=== PATIENT | male | born 1975 | race Caucasian/White ===

== ENCOUNTER 2018-08-15 17:47 | Emergency (ER) | payer MEDICAID, OTHER ==
[~2018-08-15] VITALS: Ht 188 cm; Wt 105.0 kg
[2018-08-15] MEDS ORDERED: DULO60CA7 PO (18:06)
[2018-08-15] MEDS ORDERED: OLAN20TA3 PO (18:06)
[2018-08-15 19:19] LABS: ALBUMIN 3.9 g/dL (3.4-5.0); BASOPHILS # (AUTO) 0.04 x10^3/uL (0-0.1); BASOPHILS % (AUTO) 1 % (0-1); CALCIUM 9.4 mg/dL (8.5-10.1); CREATININE 1.16 mg/dL (0.7-1.3); EOSINOPHILS # (AUTO) 0.13 x10^3/uL (0-0.4); EOSINOPHILS % (AUTO) 2 % (1-7); LYMPHOCYTES % (AUTO) 27 % (22-44); MD NO; MEAN CORPUSCULAR HEMOGLOBIN 29.7 pg (27.5-34.5); MEAN CORPUSCULAR HGB CONC 33.5 g/dL (33.2-36.2); MEAN CORPUSCULAR VOLUME 88.5 fL (81-97); MEAN PLATELET VOLUME 8.8 fL (7.4-10.4); MONOCYTES % (AUTO) 20 % (2-9); NEUTROPHILS # (AUTO) 2.77 x10^3/uL (1.8-6.8); NEUTROPHILS % (AUTO) 50 % (42-75); PLATELET COUNT 261 x10^3/uL (130-400); RED BLOOD COUNT 5.46 x10^6/uL (4.38-5.82); RED CELL DISTRIBUTION WIDTH 14.1 % (9.4-14.8)
[2018-08-15 19:23] LABS: TROPONIN I < 0.015 ng/mL (0.000-0.045)
[2018-08-15 19:28] LABS: ANION GAP 6 mmol/L (5-15); CHLORIDE 106 mmol/L (98-107)
[2018-08-15 19:51] VITALS: BP 124/85
[2018-08-15] MEDS ORDERED: KETOROLAC 30 MG/1 ML IM ONE (20:00)
== END 2018-08-15 19:53 | disposition home or self-care (01) ==
LOC: ED 18:24
DX: Z02.89 Encounter for other administrative examinations (principal); R42 Dizziness and giddiness; F17.200 Nicotine dependence, unspecified, uncomplicated
CPT/HCPCS: 36415; 71045; 80048; 82040; 84484; 85025; 93005; 99284

== ENCOUNTER 2018-08-27 13:16 | Emergency (ER) | payer OTHER ==
[~2018-08-27] VITALS: Ht 188 cm; Wt 108.0 kg
[~2018-08-27 13:16] MED LIST: DULO60CA7 PO; OLAN20TA3 PO
--- NOTE | 2018-08-27 13:27 | NUR ---
PT IN ROOM. IN GOWN WITH OFFICER IN ROOM. AWAITING MD DAVIS.
[2018-08-27] MEDS ORDERED: KETOROLAC 30 MG/1 ML IM/IV ONE (14:00)
[2018-08-27] MEDS ORDERED: KETOROLAC 30 MG/1 ML ONE (14:03)
[2018-08-27 14:37] VITALS: BP 139/91
[2018-08-27] MEDS ORDERED: SODIUM CHLORIDE FLUSH 10ML SYR IVF ONE (15:00)
[2018-08-27 15:25] LABS: BASOPHILS # (AUTO) 0.06 x10^3/uL (0-0.1); BASOPHILS % (AUTO) 1 % (0-1); EOSINOPHILS # (AUTO) 0.18 x10^3/uL (0-0.4); EOSINOPHILS % (AUTO) 2 % (1-7); LYMPHOCYTES # (AUTO) 1.92 x10^3/uL (1-3.4); LYMPHOCYTES % (AUTO) 24 % (22-44); MD NO; MEAN CORPUSCULAR HEMOGLOBIN 29.3 pg (27.5-34.5); MEAN CORPUSCULAR HGB CONC 33.2 g/dL (33.2-36.2); MEAN CORPUSCULAR VOLUME 88.3 fL (81-97); MEAN PLATELET VOLUME 8.9 fL (7.4-10.4); MONOCYTES # (AUTO) 0.83 x10^3/uL (0.2-0.8); MONOCYTES % (AUTO) 10 % (2-9); NEUTROPHILS # (AUTO) 5.16 x10^3/uL (1.8-6.8); NEUTROPHILS % (AUTO) 63 % (42-75); PLATELET COUNT 282 x10^3/uL (130-400); RED BLOOD COUNT 5.42 x10^6/uL (4.38-5.82); RED CELL DISTRIBUTION WIDTH 13.9 % (9.4-14.8)
[2018-08-27 15:37] LABS: CULTURE INDICATED? NO; MICROSCOPIC NOT IND
[2018-08-27 15:38] LABS: ALBUMIN 3.9 g/dL (3.4-5.0); ANION GAP 0 mmol/L (5-15); CALCIUM 9.2 mg/dL (8.5-10.1); CHLORIDE 109 mmol/L (98-107)
[2018-08-27 15:41] LABS: ALANINE AMINOTRANSFERASE 48 U/L (12-78); ALKALINE PHOSPHATASE 108 U/L (45-117); BILIRUBIN,TOTAL 0.3 mg/dL (0.2-1.0); CREATININE 1.02 mg/dL (0.7-1.3); TOTAL PROTEIN 7.1 g/dL (6.4-8.2)
[2018-08-27] MEDS ORDERED: OMNIPAQUE 350 MG/ML, 100ML BOTTLE ONE (16:10)
== END 2018-08-27 16:50 | disposition home or self-care (01) ==
LOC: ED 13:54
DX: N20.2 Calculus of kidney with calculus of ureter (principal); F17.200 Nicotine dependence, unspecified, uncomplicated
CPT/HCPCS: 36415; 74177; 76870; 80053; 81003; 83690; 85025; 93975; 96372; 99284; J1885; Q9967

== ENCOUNTER 2019-03-09 10:14 | Emergency (ER) | payer MEDICAID, OTHER ==
[~2019-03-09] VITALS: Ht 188 cm; Wt 100.0 kg
[2019-03-09] MEDS ORDERED: HYDROmorphone 2 MG/ML, 1ML IVPush PRN (10:30)
[2019-03-09] MEDS ORDERED: ONDANSETRON 2MG/ML, 2ML IVPush ONE (10:30)
[2019-03-09] MEDS ORDERED: SODIUM CHLORIDE FLUSH 10ML SYR IVF ONE (10:30)
[2019-03-09 10:49] LABS: BASOPHILS # (AUTO) 0.05 x10^3/uL (0-0.1); BASOPHILS % (AUTO) 1 % (0-1); EOSINOPHILS # (AUTO) 0.08 x10^3/uL (0-0.4); EOSINOPHILS % (AUTO) 1 % (1-7); LYMPHOCYTES # (AUTO) 1.84 x10^3/uL (1-3.4); LYMPHOCYTES % (AUTO) 29 % (22-44); MD NO; MEAN CORPUSCULAR HEMOGLOBIN 29.4 pg (27.5-34.5); MEAN CORPUSCULAR HGB CONC 32.2 g/dL (33.2-36.2); MEAN CORPUSCULAR VOLUME 91.2 fL (81-97); MEAN PLATELET VOLUME 8.3 fL (7.4-10.4); MONOCYTES # (AUTO) 0.62 x10^3/uL (0.2-0.8); MONOCYTES % (AUTO) 10 % (2-9); NEUTROPHILS # (AUTO) 3.78 x10^3/uL (1.8-6.8); NEUTROPHILS % (AUTO) 59 % (42-75); PLATELET COUNT 246 x10^3/uL (130-400); RED BLOOD COUNT 5.16 x10^6/uL (4.38-5.82); RED CELL DISTRIBUTION WIDTH 13.6 % (9.4-14.8)
[2019-03-09 10:52] LABS: ALANINE AMINOTRANSFERASE 27 U/L (12-78); ALBUMIN 3.8 g/dL (3.4-5.0); ANION GAP 14 mmol/L (5-15); CHLORIDE 113 mmol/L (98-107); CREATININE 0.97 mg/dL (0.7-1.3)
[2019-03-09] MEDS ORDERED: ONDANSETRON 2MG/ML, 2ML ONE (10:54)
[2019-03-09 10:55] LABS: ALKALINE PHOSPHATASE 94 U/L (45-117); BILIRUBIN,TOTAL 0.3 mg/dL (0.2-1.0)
[2019-03-09] MEDS ORDERED: HYDROmorphone 2 MG/ML, 1ML ONE ×2 (10:55→11:44)
[2019-03-09 10:59] LABS: MICROSCOPIC AUTO
[2019-03-09 11:05] LABS: CALCIUM 9.1 mg/dL (8.5-10.1)
--- NOTE | 2019-03-09 11:15 | NUR ---
MEDICATED FOR NAUSEA AND RUQ PAIN. ULTRASOUND AT BEDSIDE
[2019-03-09 11:20] LABS: CULTURE INDICATED? YES
--- NOTE | 2019-03-09 11:50 | NUR ---
PT REMEDICATED FOR PAIN TRIGGERED BY ULTRASOUND EXAM
[2019-03-09 12:45] VITALS: BP 132/64
== END 2019-03-09 12:47 | disposition home or self-care (01) ==
LOC: ED 12:14
DX: K29.00 Acute gastritis without bleeding (principal); F17.200 Nicotine dependence, unspecified, uncomplicated
CPT/HCPCS: 36415; 76700; 80053; 81001; 83690; 85025; 87086; 96374; 99284; J1170

== ENCOUNTER 2019-03-12 20:28 | Emergency (ER) | payer MEDICAID ==
[~2019-03-12] VITALS: Ht 188 cm; Wt 100.2 kg
[2019-03-12 20:30] VITALS: BP 133/81
--- NOTE | 2019-03-12 20:59 | NUR ---
Pt brought to room 3, c/o worsening RUQ pain today with emesis x 2 around noon, states recent dx and treatment for "gall bladder issues", discharged from [facility] 1 week ago, appt w/ Dr. Matias tomorrow for consult but states pain "was too bad to make it". Pt is alert, calm, cooperative, respirations normal, not currently guarding, tendr to palpation, vitals stable. Labs drawn. waiting for orders.
[2019-03-12 21:05] LABS: BASOPHILS # (AUTO) 0.05 x10^3/uL (0-0.1); BASOPHILS % (AUTO) 1 % (0-1); EOSINOPHILS # (AUTO) 0.11 x10^3/uL (0-0.4); EOSINOPHILS % (AUTO) 1 % (1-7); LYMPHOCYTES % (AUTO) 30 % (22-44); MD NO; MEAN CORPUSCULAR HEMOGLOBIN 29.8 pg (27.5-34.5); MEAN CORPUSCULAR HGB CONC 32.9 g/dL (33.2-36.2); MEAN CORPUSCULAR VOLUME 90.8 fL (81-97); MEAN PLATELET VOLUME 8.2 fL (7.4-10.4); MONOCYTES # (AUTO) 0.83 x10^3/uL (0.2-0.8); MONOCYTES % (AUTO) 10 % (2-9); NEUTROPHILS # (AUTO) 4.79 x10^3/uL (1.8-6.8); NEUTROPHILS % (AUTO) 58 % (42-75); PLATELET COUNT 252 x10^3/uL (130-400); RED BLOOD COUNT 5.15 x10^6/uL (4.38-5.82); RED CELL DISTRIBUTION WIDTH 13.6 % (9.4-14.8)
[2019-03-12 21:14] LABS: ALANINE AMINOTRANSFERASE 24 U/L (12-78); ALBUMIN 3.8 g/dL (3.4-5.0); ANION GAP 6 mmol/L (5-15); CALCIUM 9.5 mg/dL (8.5-10.1); CHLORIDE 110 mmol/L (98-107)
[2019-03-12 21:16] LABS: ALKALINE PHOSPHATASE 92 U/L (45-117); BILIRUBIN,TOTAL 0.2 mg/dL (0.2-1.0); TOTAL PROTEIN 7.2 g/dL (6.4-8.2)
--- NOTE | 2019-03-12 22:03 | NUR ---
Labs and US reviewed, pt updated, vitals stable. Pt discharged to home w/ new script, instructed to f/u w/ provider as planned, verbalizes understanding. Exitcare reviewed. Ambulates w/ steady gait to front lobby.
== END 2019-03-12 22:11 | disposition home or self-care (01) ==
LOC: ED 22:05
DX: R10.11 Right upper quadrant pain (principal); R11.2 Nausea with vomiting, unspecified; F17.200 Nicotine dependence, unspecified, uncomplicated
CPT/HCPCS: 36415; 76700; 80053; 83690; 85025; 93005; 99284

== ENCOUNTER 2019-03-21 00:49 | Emergency (ER) | payer MEDICAID ==
[~2019-03-21] VITALS: Ht 188 cm; Wt 100.0 kg
--- NOTE | 2019-03-21 01:02 | NUR ---
EKG DONE ON ARRIVAL.
--- NOTE | 2019-03-21 01:08 | NUR ---
BIB EMS from work, c/o substernal chest pain radiates to left chest/ axial x 3 hours w/ nausea/ emesis. Pt denies SOB, skin is dry, reports recent discharge from [facility] 2 days ago for acute liz, states "it kind of feels the same".
[2019-03-21] MEDS ORDERED: MORPHINE SULFATE 4 MG/ML, 1ML ONE (01:19)
--- NOTE | 2019-03-21 01:24 | NUR ---
PT MEDICATED FOR PAIN, TOLERATES iv MEDICATION WELL, VITALS REMAIN STABLE.
[2019-03-21 01:30] LABS: BASOPHILS # (AUTO) 0.06 x10^3/uL (0-0.1); BASOPHILS % (AUTO) 1 % (0-1); EOSINOPHILS # (AUTO) 0.12 x10^3/uL (0-0.4); EOSINOPHILS % (AUTO) 1 % (1-7); LYMPHOCYTES # (AUTO) 2.38 x10^3/uL (1-3.4); LYMPHOCYTES % (AUTO) 25 % (22-44); MD NO; MEAN CORPUSCULAR HEMOGLOBIN 29.9 pg (27.5-34.5); MEAN CORPUSCULAR VOLUME 90.6 fL (81-97); MEAN PLATELET VOLUME 8.3 fL (7.4-10.4); MONOCYTES # (AUTO) 0.98 x10^3/uL (0.2-0.8); MONOCYTES % (AUTO) 10 % (2-9); NEUTROPHILS # (AUTO) 6.01 x10^3/uL (1.8-6.8); NEUTROPHILS % (AUTO) 63 % (42-75); PLATELET COUNT 294 x10^3/uL (130-400); RED BLOOD COUNT 5.16 x10^6/uL (4.38-5.82)
[2019-03-21] MEDS ORDERED: MORPHINE SULFATE 4 MG/ML, 1ML IVPush ONE (01:30)
[2019-03-21] MEDS ORDERED: SODIUM CHLORIDE FLUSH 10ML SYR IVF ONE (01:30)
[2019-03-21] MEDS ORDERED: ONDANSETRON 2MG/ML, 2ML IVPush ONE (01:30)
[2019-03-21 01:40] LABS: ALBUMIN 3.6 g/dL (3.4-5.0); ANION GAP 7 mmol/L (5-15); CHLORIDE 111 mmol/L (98-107); CREATININE 1.16 mg/dL (0.7-1.3)
[2019-03-21 01:43] LABS: TROPONIN I < 0.015 ng/mL (0.000-0.045)
[2019-03-21] MEDS ORDERED: HYDROcodone/APAP 5/325 TABLET ONE (02:14)
[2019-03-21 02:19] VITALS: BP 120/88
--- NOTE | 2019-03-21 02:20 | NUR ---
Pt medicated for pain per MD orders, states improvement w/ morphine, "it feels like cramping". Vitals stable, repeat trop ordered. will cont to monitor.
[2019-03-21] MEDS ORDERED: HYDROcodone/APAP 5/325 TABLET PO ONE (02:30)
--- NOTE | 2019-03-21 03:40 | NUR ---
Pt resting on gurney w/ eyes closed, respirations are even and unlabored, no s/sx of distress noted, vitals stable, remains NSR on monitor, waiting on repeat labwork.
--- NOTE | 2019-03-21 04:45 | NUR ---
Labs collected, waiting for results. vitals remain stable.
[2019-03-21 05:09] LABS: TROPONIN I < 0.015 ng/mL (0.000-0.045)
[2019-03-21] MEDS ORDERED: ONDANSETRON 2MG/ML, 2ML ONE (05:09)
--- NOTE | 2019-03-21 05:12 | NUR ---
Pt medicated for c/o nausea, vitals stable, waiting on lab results.
[2019-03-22] MEDS ORDERED: LISINOPRIL (23:51)
[2019-03-28] MEDS ORDERED: BENZ2AMP4 PO (13:26)
[2019-03-28] MEDS ORDERED: QUET300T5 PO (13:26)
[2019-03-28] MEDS ORDERED: DULO60CA7 PO (13:26)
[2019-03-28] MEDS ORDERED: GABA300C10 PO (13:26)
[2019-05-02] MEDS ORDERED: PROP10TA16 PO (22:59)
[2019-05-02] MEDS ORDERED: HALO5TAB5 PO (22:59)
[2019-05-02] MEDS ORDERED: MIRT15TA3 PO (22:59)
[2019-05-28] MEDS ORDERED: ZIPR40CA2 PO (20:25)
[2019-05-28] MEDS ORDERED: CLON2TAB PO (20:25)
[2019-05-28] MEDS ORDERED: OMEP-110 PO (20:25)
[2019-05-28] MEDS ORDERED: CARB200T PO (20:25)
[2019-05-28] MEDS ORDERED: ACET650S21 PO (20:25)
[2019-05-28] MEDS ORDERED: ZOLP10TA PO (20:25)
== END 2019-03-21 05:51 | disposition home or self-care (01) ==
LOC: ED 01:38
DX: R07.89 Other chest pain (principal); R11.10 Vomiting, unspecified; F17.200 Nicotine dependence, unspecified, uncomplicated
CPT/HCPCS: 36415; 71045; 80048; 82040; 84484; 85025; 85379; 93005; 96374; 96375; 99284; J2270; J2405

== ENCOUNTER 2019-03-22 22:48 | Emergency (ER) | payer MEDICAID ==
[~2019-03-22] VITALS: Ht 188 cm; Wt 99.0 kg
[2019-03-22] MEDS ORDERED: OXYcodone/APAP 5/325MG TABLET ONE (23:40)
[2019-03-22] MEDS ORDERED: LISINOPRIL (23:51)
[2019-03-22 23:53] LABS: CULTURE INDICATED? YES; MICROSCOPIC INDICATED
[2019-03-23] MEDS ORDERED: ONDANSETRON ODT 8 MG PO ONE
[2019-03-23] MEDS ORDERED: ONDANSETRON ODT 4 MG ONE (00:01)
--- NOTE | 2019-03-23 00:23 | NUR ---
PT STATED THAT PAIN MEDICATION HASNT HELPED WITH PAIN. ER MD INFORMED.
[2019-03-23] MEDS ORDERED: OXYcodone/APAP 5/325MG TABLET PO ONE ×2 (00:30)
[2019-03-23 00:37] LABS: ANION GAP 5 mmol/L (5-15); CALCIUM 8.7 mg/dL (8.5-10.1); CHLORIDE 112 mmol/L (98-107); CREATININE 0.95 mg/dL (0.7-1.3)
[2019-03-23] MEDS ORDERED: OXYcodone/APAP 5/325MG TABLET ONE (00:39)
--- NOTE | 2019-03-23 00:40 | NUR ---
PT MEDICATED AND CT AT BEDSIDE TO TRANSPORT.
[2019-03-23 02:16] VITALS: BP 111/65
--- NOTE | 2019-03-23 02:17 | NUR ---
Patient/Caregiver given discharge instructions and they have confirmed that they understand the instructions. Patient ambulatory with steady gait.
[2019-03-28] MEDS ORDERED: QUET300T5 PO (13:26)
[2019-03-28] MEDS ORDERED: DULO60CA7 PO (13:26)
[2019-03-28] MEDS ORDERED: GABA300C10 PO (13:26)
[2019-03-28] MEDS ORDERED: BENZ2AMP4 PO (13:26)
[2019-05-02] MEDS ORDERED: HALO5TAB5 PO (22:59)
[2019-05-02] MEDS ORDERED: MIRT15TA3 PO (22:59)
[2019-05-02] MEDS ORDERED: PROP10TA16 PO (22:59)
[2019-05-28] MEDS ORDERED: ZOLP10TA PO (20:25)
[2019-05-28] MEDS ORDERED: OMEP-110 PO (20:25)
[2019-05-28] MEDS ORDERED: CLON2TAB PO (20:25)
[2019-05-28] MEDS ORDERED: CARB200T PO (20:25)
[2019-05-28] MEDS ORDERED: ACET650S21 PO (20:25)
[2019-05-28] MEDS ORDERED: ZIPR40CA2 PO (20:25)
== END 2019-03-23 02:18 | disposition home or self-care (01) ==
LOC: ED 23:41
DX: N50.811 Right testicular pain (principal); R31.0 Gross hematuria; F17.200 Nicotine dependence, unspecified, uncomplicated; I10 Essential (primary) hypertension
CPT/HCPCS: 36415; 74176; 76870; 80048; 81001; 87086; 99284; Q0162

== ENCOUNTER 2019-03-28 12:50 | Emergency (ER) | payer MEDICAID ==
[~2019-03-28] VITALS: Ht 188 cm; Wt 97.6 kg
[2019-03-28 20:52] VITALS: BP 109/75
== END 2019-03-28 20:56 ==
LOC: ED 13:58
DX: R45.851 Suicidal ideations (principal); F32.9 Major depressive disorder, single episode, unspecified; F25.9 Schizoaffective disorder, unspecified; F17.200 Nicotine dependence, unspecified, uncomplicated
CPT/HCPCS: 36415; 80048; 80307; 82040; 85025; 99285

== ENCOUNTER 2019-04-09 23:42 | Emergency (ER) | payer MEDICAID ==
[~2019-04-09] VITALS: Ht 188 cm; Wt 99.5 kg
[2019-04-10 09:01] VITALS: BP 126/85
== END 2019-04-10 13:28 ==
LOC: ED 23:51
DX: F41.1 Generalized anxiety disorder (principal); F16.151 Hallucinogen abuse with hallucinogen-induced psychotic disorder with hallucinations; Z72.9 Problem related to lifestyle, unspecified
CPT/HCPCS: 36415; 80053; 80307; 85025; 99285

== ENCOUNTER 2019-08-09 19:09 | Emergency (ER) | payer MEDICAID ==
[~2019-08-09] VITALS: Ht 188 cm; Wt 106.0 kg
[~2019-08-09 19:09] MED LIST changes: +ACET650S21 PO; +BENZ2AMP4 PO; +CARB200T PO; +CLON2TAB PO; +GABA300C10 PO; +HALO5TAB5 PO; +LISINOPRIL; +MIRT15TA3 PO; +OMEP-110 PO; +PROP10TA16 PO; +QUET300T5 PO; +ZIPR40CA2 PO; +ZOLP10TA PO
--- NOTE | 2019-08-09 20:43 | NUR ---
BIB [facility]. PT WOKE UP FROM [facility] AT 1800 WITH 9/10 RUQ ABD PAIN WITH 1 EPISODE OF EMESIS. PT HAD BREAKFAST THIS AM, BUT NOTHING SINCE. CANDY SUPERVISOR [facility]: 18G RAC, 250 FENT, 4 ZOFRAN. CONNECTED TO MONITORING. CALL LIGHT IN REACH. FAMILY AT BEDSIDE. AWAITING ORDERS AT THIS TIME.
[2019-08-09] MEDS ORDERED: PROP10TA51 PEG (20:54)
[2019-08-09] MEDS ORDERED: GABA300C10 PO (20:54)
[2019-08-09] MEDS ORDERED: HALO5TAB5 PO (20:54)
[2019-08-09] MEDS ORDERED: COGENTIN PO (20:54)
[2019-08-09] MEDS ORDERED: AMPH20TA2 PO (20:54)
[2019-08-09 21:16] LABS: BASOPHILS # (AUTO) 0.05 x10^3/uL (0-0.1); BASOPHILS % (AUTO) 1 % (0-1); EOSINOPHILS # (AUTO) 0.18 x10^3/uL (0-0.4); EOSINOPHILS % (AUTO) 3 % (1-7); LYMPHOCYTES # (AUTO) 2.21 x10^3/uL (1-3.4); LYMPHOCYTES % (AUTO) 31 % (22-44); MD NO; MEAN CORPUSCULAR HEMOGLOBIN 30.8 pg (27.5-34.5); MEAN CORPUSCULAR VOLUME 93.2 fL (81-97); MEAN PLATELET VOLUME 8.2 fL (7.4-10.4); MONOCYTES # (AUTO) 0.81 x10^3/uL (0.2-0.8); MONOCYTES % (AUTO) 11 % (2-9); NEUTROPHILS # (AUTO) 3.92 x10^3/uL (1.8-6.8); NEUTROPHILS % (AUTO) 55 % (42-75); PLATELET COUNT 223 x10^3/uL (130-400); RED BLOOD COUNT 4.99 x10^6/uL (4.38-5.82); RED CELL DISTRIBUTION WIDTH 14.6 % (9.4-14.8)
[2019-08-09] MEDS ORDERED: DICYCLOMINE 10 MG/ML, 2ML ONE (21:26)
[2019-08-09 21:27] LABS: ALANINE AMINOTRANSFERASE 28 U/L (12-78); ALBUMIN 3.5 g/dL (3.4-5.0); ANION GAP 5 mmol/L (5-15); CALCIUM 8.7 mg/dL (8.5-10.1); CHLORIDE 110 mmol/L (98-107); CREATININE 0.92 mg/dL (0.7-1.3)
[2019-08-09] MEDS ORDERED: MAALOX/HYOSCYAMINE/LIDOCAINE 45 ML BTL ONE (21:27)
[2019-08-09 21:29] LABS: ALKALINE PHOSPHATASE 87 U/L (45-117); BILIRUBIN,TOTAL 0.1 mg/dL (0.2-1.0)
[2019-08-09] MEDS ORDERED: DICYCLOMINE 10 MG/ML, 2ML IM ONE (21:30)
[2019-08-09] MEDS ORDERED: MAALOX/HYOSCYAMINE/LIDOCAINE 45 ML BTL PO ONE (21:30)
[2019-08-09 21:33] VITALS: BP 112/75
--- NOTE | 2019-08-09 21:33 | NUR ---
MEDS ADMIN PER OCT. PT RESTING COMFORTABLY ON GURNEY. NADN. ALL RESULTS ARE BACK AT THIS TIME. CHART UP FOR RECHECK.
== END 2019-08-09 22:39 | disposition home or self-care (01) ==
LOC: ED 20:56
DX: K29.00 Acute gastritis without bleeding (principal); I10 Essential (primary) hypertension
CPT/HCPCS: 36415; 80053; 83690; 85025; 96372; 99283; J0500

== ENCOUNTER 2019-09-08 13:24 | Emergency (ER) | payer MEDICAID ==
[~2019-09-08] VITALS: Ht 188 cm; Wt 104.0 kg
[~2019-09-08 13:24] MED LIST changes: +AMPH20TA2 PO; +COGENTIN PO; +PROP10TA51 PEG
[2019-09-08] MEDS ORDERED: MAALOX/HYOSCYAMINE/LIDOCAINE 45 ML BTL PO ONE (14:30)
[2019-09-08] MEDS ORDERED: MAALOX/HYOSCYAMINE/LIDOCAINE 45 ML BTL ONE (14:31)
--- NOTE | 2019-09-08 14:35 | NUR ---
roger per oct. plan for lab draw. vss. NAD. call elin rose. as
[2019-09-08 14:53] LABS: BASOPHILS # (AUTO) 0.02 x10^3/uL (0-0.1); BASOPHILS % (AUTO) 0 % (0-1); EOSINOPHILS # (AUTO) 0.13 x10^3/uL (0-0.4); EOSINOPHILS % (AUTO) 1 % (1-7); LYMPHOCYTES # (AUTO) 1.67 x10^3/uL (1-3.4); LYMPHOCYTES % (AUTO) 13 % (22-44); MD NO; MEAN CORPUSCULAR HGB CONC 32.8 g/dL (33.2-36.2); MEAN CORPUSCULAR VOLUME 91.6 fL (81-97); MEAN PLATELET VOLUME 8.1 fL (7.4-10.4); MONOCYTES # (AUTO) 0.97 x10^3/uL (0.2-0.8); MONOCYTES % (AUTO) 7 % (2-9); NEUTROPHILS # (AUTO) 10.37 x10^3/uL (1.8-6.8); NEUTROPHILS % (AUTO) 79 % (42-75); PLATELET COUNT 218 x10^3/uL (130-400); RED BLOOD COUNT 5.05 x10^6/uL (4.38-5.82); RED CELL DISTRIBUTION WIDTH 14.7 % (9.4-14.8)
[2019-09-08 15:06] LABS: ALBUMIN 3.5 g/dL (3.4-5.0); ANION GAP 6 mmol/L (5-15); CALCIUM 8.6 mg/dL (8.5-10.1); CHLORIDE 113 mmol/L (98-107)
[2019-09-08 15:10] LABS: CREATININE 0.85 mg/dL (0.7-1.3)
[2019-09-08 15:11] LABS: ALANINE AMINOTRANSFERASE 25 U/L (12-78); ALKALINE PHOSPHATASE 85 U/L (45-117); BILIRUBIN,TOTAL 0.5 mg/dL (0.2-1.0); TOTAL PROTEIN 6.7 g/dL (6.4-8.2)
[2019-09-08 15:33] VITALS: BP 128/74
--- NOTE | 2019-09-08 15:46 | NUR ---
labs wnl. us pending. vss. no change in conidtion. call baker in reach. as
== END 2019-09-08 17:01 | disposition home or self-care (01) ==
LOC: ED 15:37
DX: K29.00 Acute gastritis without bleeding (principal); I10 Essential (primary) hypertension; F17.200 Nicotine dependence, unspecified, uncomplicated
CPT/HCPCS: 36415; 76700; 80053; 83690; 85025; 99284

== ENCOUNTER 2019-09-10 21:46 | Emergency (ER) | payer MEDICAID ==
[~2019-09-10] VITALS: Ht 188 cm; Wt 100.0 kg
--- NOTE | 2019-09-10 22:10 | NUR ---
Pt here for right flank pain x 6 hours. Pt reports it was sudden onset and fells like his previous kidney stone. Pt reports that he started to bleed red blood immediately when the pain started. Pt denies any truama. Pt is recovering from controlled substance abuse. Pt reports he is comfortable taking narcotics now and wont relapse. Pt connected to monitors and call light in reach. awaiting further orders.
[2019-09-10] MEDS ORDERED: ONDANSETRON 2MG/ML, 2ML ONE (22:16)
[2019-09-10] MEDS ORDERED: MORPHINE SULFATE 4 MG/ML, 1ML ONE (22:17)
[2019-09-10 22:22] VITALS: BP 147/92
[2019-09-10] MEDS ORDERED: ONDANSETRON 2MG/ML, 2ML IVPush ONE (22:30)
[2019-09-10] MEDS ORDERED: MORPHINE SULFATE 4 MG/ML, 1ML IVPush PRN (22:30)
[2019-09-10 22:31] LABS: MICROSCOPIC AUTO
[2019-09-10 22:45] LABS: CULTURE INDICATED? NO
[2019-09-10 23:01] LABS: BASOPHILS # (AUTO) 0.04 x10^3/uL (0-0.1); BASOPHILS % (AUTO) 1 % (0-1); EOSINOPHILS # (AUTO) 0.19 x10^3/uL (0-0.4); EOSINOPHILS % (AUTO) 3 % (1-7); LYMPHOCYTES # (AUTO) 2.32 x10^3/uL (1-3.4); LYMPHOCYTES % (AUTO) 33 % (22-44); MD NO; MEAN CORPUSCULAR HEMOGLOBIN 30.3 pg (27.5-34.5); MEAN CORPUSCULAR HGB CONC 33.1 g/dL (33.2-36.2); MEAN CORPUSCULAR VOLUME 91.6 fL (81-97); MEAN PLATELET VOLUME 8.4 fL (7.4-10.4); MONOCYTES # (AUTO) 0.95 x10^3/uL (0.2-0.8); MONOCYTES % (AUTO) 14 % (2-9); NEUTROPHILS # (AUTO) 3.53 x10^3/uL (1.8-6.8); NEUTROPHILS % (AUTO) 50 % (42-75); PLATELET COUNT 205 x10^3/uL (130-400); RED BLOOD COUNT 4.76 x10^6/uL (4.38-5.82); RED CELL DISTRIBUTION WIDTH 14.9 % (9.4-14.8)
[2019-09-10 23:10] LABS: ALANINE AMINOTRANSFERASE 24 U/L (12-78); ALBUMIN 3.5 g/dL (3.4-5.0); ANION GAP 3 mmol/L (5-15); CALCIUM 9.2 mg/dL (8.5-10.1); CHLORIDE 110 mmol/L (98-107); CREATININE 0.95 mg/dL (0.7-1.3)
[2019-09-10 23:13] LABS: ALKALINE PHOSPHATASE 89 U/L (45-117); BILIRUBIN,TOTAL 0.1 mg/dL (0.2-1.0); TOTAL PROTEIN 6.7 g/dL (6.4-8.2)
--- NOTE | 2019-09-11 00:10 | NUR ---
Patient/Caregiver given discharge instructions and they have confirmed that they understand the instructions. Patient ambulatory with steady gait.
== END 2019-09-11 00:14 | disposition home or self-care (01) ==
LOC: ED 09-11 00:11
DX: N23 Unspecified renal colic (principal); G89.29 Other chronic pain; R31.29 Other microscopic hematuria; I10 Essential (primary) hypertension; F17.200 Nicotine dependence, unspecified, uncomplicated; F43.10 Post-traumatic stress disorder, unspecified; Z72.9 Problem related to lifestyle, unspecified
CPT/HCPCS: 36415; 76770; 80053; 81001; 83690; 85025; 96374; 96375; 99284; J2270; J2405

== ENCOUNTER 2019-09-12 21:42 | Emergency (ER) | payer MEDICAID ==
[~2019-09-12] VITALS: Ht 188 cm; Wt 108.4 kg
[2019-09-12 21:45] VITALS: BP 149/100
[2019-09-12 22:22] LABS: BASOPHILS # (AUTO) 0.05 x10^3/uL (0-0.1); BASOPHILS % (AUTO) 1 % (0-1); EOSINOPHILS # (AUTO) 0.12 x10^3/uL (0-0.4); EOSINOPHILS % (AUTO) 2 % (1-7); LYMPHOCYTES # (AUTO) 2.16 x10^3/uL (1-3.4); LYMPHOCYTES % (AUTO) 31 % (22-44); MD NO; MEAN CORPUSCULAR HEMOGLOBIN 30.2 pg (27.5-34.5); MEAN CORPUSCULAR HGB CONC 32.7 g/dL (33.2-36.2); MEAN CORPUSCULAR VOLUME 92.4 fL (81-97); MEAN PLATELET VOLUME 8.3 fL (7.4-10.4); MONOCYTES # (AUTO) 0.67 x10^3/uL (0.2-0.8); MONOCYTES % (AUTO) 10 % (2-9); NEUTROPHILS # (AUTO) 3.97 x10^3/uL (1.8-6.8); NEUTROPHILS % (AUTO) 57 % (42-75); PLATELET COUNT 195 x10^3/uL (130-400); RED BLOOD COUNT 5.02 x10^6/uL (4.38-5.82); RED CELL DISTRIBUTION WIDTH 14.9 % (9.4-14.8)
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
[2019-09-12 22:40] LABS: ALBUMIN 3.9 g/dL (3.4-5.0); ANION GAP 2 mmol/L (5-15); CHLORIDE 108 mmol/L (98-107); SALICYLATE LEVEL 3.2 mg/dL (2.8-20.0)
[2019-09-12 22:43] LABS: ALANINE AMINOTRANSFERASE 35 U/L (12-78); ALKALINE PHOSPHATASE 89 U/L (45-117); BILIRUBIN,TOTAL 0.2 mg/dL (0.2-1.0); CREATININE 1.11 mg/dL (0.7-1.3); TOTAL PROTEIN 7.4 g/dL (6.4-8.2)
[2019-09-12 22:52] LABS: AMPHETAMINE SCREEN, URINE Negative (Negative); BARBITURATE SCREEN, URINE Negative (Negative); BENZODIAZEPINE SCREEN, URINE Negative (Negative); CANNABINOID SCREEN, URINE Negative (Negative); COCAINE SCREEN, URINE Negative (Negative); METHADONE SCREEN, URINE Negative (Negative); OPIATE SCREEN, URINE Negative (Negative)
--- NOTE | 2019-09-12 23:18 | NUR ---
PT STATED HE FELT BETTER, ELOPED OUT AMBULANCE BAY DOORS, ENCOURAGED TO STAY, ERP INFORMED.
--- NOTE | 2019-09-12 23:37 | NUR ---
PER PA AND , PT OKAY TO LEAVE, NO CALL TO PD NEEDED
== END 2019-09-12 23:43 | disposition left against medical advice (07) ==
LOC: ED 22:27
DX: F43.22 Adjustment disorder with anxiety (principal); I10 Essential (primary) hypertension
CPT/HCPCS: 36415; 80053; 80307; 85025; 99284

== ENCOUNTER 2019-09-25 12:57 | Inpatient (IN) | payer MEDICAID ==
[~2019-09-25] VITALS: Ht 185.4 cm; Wt 105.1 kg
--- NOTE | 2019-09-25 13:29 | NUR ---
pt biba for overdose on prescription medication in suicide attempt. ingestion occurred between 1130am and 12pm today. pt estimates he took approx 162 mg clonazepam, 670 mg haldol, and 1600mg adderol. pt called ems after ingestion as he regretted decision. on arrival, pt is somnolant but awakens to voice. pt follows commands, pupils 4mm, equal round, reacting briskly to light. pt reports 6/10 abd pain (bilateral upper) on arrival. all monitors in place including etco2 monitoring. etco2 30-33 on arrival. ekg taken on arrival. pt's clothing and belongings removed. belongings (including cell phone), labeled, bagged placed in locked cabinet. pt did not bring any medications with him. sitter monitoring one to one per policy. pt instructed to provide urine sample when able, supplies at bedside.
[2019-09-25] MEDS ORDERED: AMPH20TA2 PO (13:35)
[2019-09-25] MEDS ORDERED: cogentin PO (13:35)
[2019-09-25] MEDS ORDERED: CLON2TAB9 PO (13:35)
[2019-09-25] MEDS ORDERED: MIRT30TA3 PO (13:35)
[2019-09-25] MEDS ORDERED: PROP10TA16 PO (13:35)
[2019-09-25 13:40] LABS: BASOPHILS # (AUTO) 0.05 x10^3/uL (0-0.1); BASOPHILS % (AUTO) 1 % (0-1); EOSINOPHILS # (AUTO) 0.12 x10^3/uL (0-0.4); EOSINOPHILS % (AUTO) 1 % (1-7); LYMPHOCYTES # (AUTO) 1.87 x10^3/uL (1-3.4); LYMPHOCYTES % (AUTO) 18 % (22-44); MD NO; MEAN CORPUSCULAR HEMOGLOBIN 30.4 pg (27.5-34.5); MEAN CORPUSCULAR HGB CONC 32.8 g/dL (33.2-36.2); MEAN CORPUSCULAR VOLUME 92.7 fL (81-97); MEAN PLATELET VOLUME 8.3 fL (7.4-10.4); MONOCYTES # (AUTO) 0.84 x10^3/uL (0.2-0.8); MONOCYTES % (AUTO) 8 % (2-9); NEUTROPHILS # (AUTO) 7.54 x10^3/uL (1.8-6.8); NEUTROPHILS % (AUTO) 72 % (42-75); PLATELET COUNT 240 x10^3/uL (130-400); RED BLOOD COUNT 4.86 x10^6/uL (4.38-5.82); RED CELL DISTRIBUTION WIDTH 15.1 % (9.4-14.8)
[2019-09-25 13:48] LABS: ALANINE AMINOTRANSFERASE 20 U/L (12-78); ALBUMIN 3.7 g/dL (3.4-5.0); ANION GAP 6 mmol/L (5-15); CALCIUM 8.9 mg/dL (8.5-10.1); CHLORIDE 110 mmol/L (98-107); SALICYLATE LEVEL 2.5 mg/dL (2.8-20.0)
--- NOTE | 2019-09-25 13:49 | NUR ---
urine collected and sent to lab. pt remains somnolant, resps even and unlabored, awakens to voice. VSS. etco2 remains 31-34. one-to-one sitter monitoring at bedside for safety. awaiting urine and lab results at this time.
[2019-09-25 13:51] LABS: ALKALINE PHOSPHATASE 96 U/L (45-117); BILIRUBIN,TOTAL 0.2 mg/dL (0.2-1.0); CREATININE 0.98 mg/dL (0.7-1.3); TOTAL PROTEIN 7.1 g/dL (6.4-8.2)
[2019-09-25 14:09] LABS: AMPHETAMINE SCREEN, URINE Negative (Negative); BARBITURATE SCREEN, URINE Negative (Negative); BENZODIAZEPINE SCREEN, URINE Positive (Negative); CANNABINOID SCREEN, URINE Negative (Negative); COCAINE SCREEN, URINE Negative (Negative); METHADONE SCREEN, URINE Negative (Negative); OPIATE SCREEN, URINE Negative (Negative)
--- NOTE | 2019-09-25 14:15 | NUR ---
pt awake, alert and oriented. resps even and unlabored. pt requesting meal MD Liliya correa notified. Per MD, pt is to remain NPO at this time. sitter monitoring at bedside, one to one.
--- NOTE | 2019-09-25 14:55 | NUR ---
PT RESTING ON GURNEY, PT DROWSY, OPENS EYES TO VOICE. PT ORIENTED X 4, FOLLOWING COMMANDS. ETCO2 35-36, PT IS NSR ON PARTS ROOM ASSISTANT WITH NO ECTOPY. BP STABLE. SITTER MONITORING ONE TO ONE AT BEDSIDE. REPORT GIVEN TO ANDRE DRAPER AT BEDSIDE.
--- NOTE | 2019-09-25 14:57 | NUR ---
REPORT RECEIVED FROM SAMI POWELL. PT IS RESTING ON [email or web address] W/ CALL LIGHT IN REACH. VS STABLE.
--- NOTE | 2019-09-25 15:16 | NUR ---
SPOKE WITH DR.VAN MATUTE. PT IS ON A LEGAL HOLD AT THIS TIME.
--- NOTE | 2019-09-25 15:42 | NUR ---
PT IS RESTING ON GURNEY W/ FAMILY AT BEDSIDE. RESP EVEN AND UNLABORED. VS STABLE. NADN.
--- NOTE | 2019-09-25 16:10 | NUR ---
PT SLEEPING ON GURNEY. RESP EVEN AND UNLABORED. VS STABLE. NADN.
--- NOTE | 2019-09-25 16:43 | NUR ---
PT EASILY AROUSABLE TO VERBAL STIMULI. CALM AND COOPERATIVE WITH STAFF AT THIS TIME. VSS. PT STS SHELLY DIAZ MD UPDATED. AWAITING ADMIT ORDERS AT THIS TIME. SITTER IN IRIZARRY FOR CONTINUOUS MONITORING.
--- NOTE | 2019-09-25 17:16 | NUR ---
PROVIDER FROM PSYCH CURRENTLY AT BEDSIDE
--- NOTE | 2019-09-25 17:20 | NUR ---
DIET TRAY DELIVERED.
--- NOTE | 2019-09-25 18:19 | NUR ---
PT RESTING ON GABRIELLE. MEDICAL STUDENT AT BEDSIDE.
[2019-09-25] MEDS: SODIUM CHLORIDE 0.9% 1,000 ML IV SCH (18:27)
--- NOTE | 2019-09-25 18:30 | NUR ---
PT REQUESTING NICOTINE PATCH.
--- NOTE | 2019-09-25 18:44 | NUR ---
PT FOLLOWS COMMANDS AND IS EASILY AROUSABLE. 1L NS STARTED. VS STABLE. NADN. CALL LIGHT IN REACH.
--- NOTE | 2019-09-25 19:22 | NUR ---
PAGED TO REQUEST NICOTINE PATCH.
--- NOTE | 2019-09-25 19:27 | NUR ---
TELEPHONE CONVERSATION W/ . WILL GIVE PT NICOTINE PATCH. 21MG.
[2019-09-25] MEDS ORDERED: NICOTINE 21 MG/24 HR PATCH.TD24 ONE (19:28)
--- NOTE | 2019-09-25 19:44 | NUR ---
REPORT GIVEN TO FLOOR RN. PT IS READY FOR TRANSFER AT THIS TIME.
[2019-09-25] MEDS: HEPARIN 5,000 UNITS/ML, 1ML SQ SCH (21:15)
[2019-09-26 03:01] VITALS: BP 107/73
[2019-09-26] MEDS: SODIUM CHLORIDE 0.9% 1,000 ML IV SCH (04:18)
[2019-09-26] MEDS: HEPARIN 5,000 UNITS/ML, 1ML SQ SCH ×2 (05:37→14:38)
[2019-09-26 06:23] LABS: BASOPHILS # (AUTO) 0.05 x10^3/uL (0-0.1); BASOPHILS % (AUTO) 1 % (0-1); EOSINOPHILS # (AUTO) 0.17 x10^3/uL (0-0.4); EOSINOPHILS % (AUTO) 3 % (1-7); LYMPHOCYTES # (AUTO) 1.98 x10^3/uL (1-3.4); LYMPHOCYTES % (AUTO) 33 % (22-44); MD NO; MEAN CORPUSCULAR HEMOGLOBIN 30.6 pg (27.5-34.5); MEAN CORPUSCULAR HGB CONC 33.2 g/dL (33.2-36.2); MEAN CORPUSCULAR VOLUME 92.3 fL (81-97); MEAN PLATELET VOLUME 8.6 fL (7.4-10.4); MONOCYTES # (AUTO) 0.79 x10^3/uL (0.2-0.8); MONOCYTES % (AUTO) 13 % (2-9); NEUTROPHILS # (AUTO) 3.05 x10^3/uL (1.8-6.8); NEUTROPHILS % (AUTO) 51 % (42-75); PLATELET COUNT 197 x10^3/uL (130-400); RED BLOOD COUNT 4.54 x10^6/uL (4.38-5.82); RED CELL DISTRIBUTION WIDTH 14.8 % (9.4-14.8)
[2019-09-26 06:32] LABS: ALANINE AMINOTRANSFERASE 18 U/L (12-78); ALBUMIN 3.2 g/dL (3.4-5.0); ANION GAP 4 mmol/L (5-15); CALCIUM 8.3 mg/dL (8.5-10.1); CHLORIDE 111 mmol/L (98-107)
[2019-09-26 06:35] LABS: ALKALINE PHOSPHATASE 82 U/L (45-117); BILIRUBIN,TOTAL 0.3 mg/dL (0.2-1.0); CREATININE 0.94 mg/dL (0.7-1.3); TOTAL PROTEIN 6.1 g/dL (6.4-8.2)
[2019-09-26 08:34] VITALS: BP 109/68
[2019-09-26 13:11] VITALS: BP 108/72
[2019-09-26] MEDS ORDERED: DOCUSATE 100 MG CAPSULE PO PRN (14:30)
[2019-09-26] MEDS ORDERED: ONDANSETRON ODT 4 MG PO PRN (14:30)
[2019-09-26] MEDS ORDERED: BISACODYL 10 MG SUPP PR PRN (14:30)
[2019-09-26] MEDS ORDERED: POLYETHYLENE GLYCOL 17 GM PACKET PO PRN (14:30)
[2019-09-26] MEDS ORDERED: ACETAMINOPHEN 325 MG TABLET PO PRN (14:30)
[2019-09-26] MEDS ORDERED: CLON2TAB9 PO (14:37)
[2019-09-26] MEDS ORDERED: CLON2TAB PO (17:55)
[2019-09-26] MEDS ORDERED: DEXT10TA7 PO (17:55)
[2019-09-26] MEDS ORDERED: BENZ1TAB61 PO (17:55)
[2019-09-26] MEDS ORDERED: BUPR150T73 PO (17:55)
[2019-09-26] MEDS ORDERED: HALO5TAB5 PO (17:55)
[2019-09-26] MEDS ORDERED: DULO60CA7 PO (17:55)
[2019-09-26] MEDS ORDERED: CARB200T PO (17:55)
[2019-09-26] MEDS ORDERED: GABA300C10 PO (17:55)
[2019-09-26] MEDS ORDERED: PROP10TA16 PO (17:55)
== END 2019-09-26 16:40 | DRG 918 ==
LOC: ED 14:39 → EDIP 17:45 → 4EST 20:05
PROVIDERS: ADMIT Family Medicine; ATTEND Family Medicine
DX: T50.902A Poisoning by unspecified drugs, medicaments and biological substances, intentional self-harm, initial encounter (principal); Z88.8 Allergy status to other drugs, medicaments and biological substances; F10.11 Alcohol abuse, in remission; Y90.9 Presence of alcohol in blood, level not specified; F17.210 Nicotine dependence, cigarettes, uncomplicated; F25.0 Schizoaffective disorder, bipolar type; F41.1 Generalized anxiety disorder; F43.10 Post-traumatic stress disorder, unspecified; Z87.11 Personal history of peptic ulcer disease; Z87.442 Personal history of urinary calculi; Z91.5 Personal history of self-harm; Y92.89 Other specified places as the place of occurrence of the external cause
CPT/HCPCS: 36415; 80053; 80307; 85025; 93005; 99285; G0378; J1644; Q0162; J7030

== ENCOUNTER 2019-09-26 12:29 | Inpatient (IN) | payer MEDICAID ==
[~2019-09-26] VITALS: Ht 188 cm; Wt 103.7 kg
[~2019-09-26 12:29] MED LIST changes: +CLON2TAB9 PO; +MIRT30TA3 PO; +cogentin PO
[2019-09-26] MEDS ORDERED: ACETAMINOPHEN 325 MG TABLET PO PRN (13:30)
[2019-09-26] MEDS ORDERED: BISACODYL 10 MG SUPP PR PRN (13:30)
[2019-09-26] MEDS ORDERED: DOCUSATE 100 MG CAPSULE PO PRN (13:30)
[2019-09-26] MEDS ORDERED: ONDANSETRON ODT 4 MG PO PRN (13:30)
[2019-09-26] MEDS ORDERED: POLYETHYLENE GLYCOL 17 GM PACKET PO PRN (13:30)
[2019-09-26] MEDS ORDERED: CLON2TAB9 PO (14:37)
[2019-09-26 16:39] LABS: CHOL/HDL RATIO 7.8; LDL/HDL RATIO 5.7 (0.5-3.0)
[2019-09-26] MEDS ORDERED: DIPHENHYDRAMINE 50 MG CAPSULE PO PRN (17:30)
[2019-09-26] MEDS ORDERED: NICOTINE 21 MG/24 HR PATCH.TD24 ONE (17:39)
[2019-09-26] MEDS: NICOTINE 21 MG/24 HR PATCH.TD24 TD SCH (17:45)
[2019-09-26] MEDS ORDERED: HALO5TAB5 PO (17:55)
[2019-09-26] MEDS ORDERED: BUPR150T73 PO (17:55)
[2019-09-26] MEDS ORDERED: BENZ1TAB61 PO (17:55)
[2019-09-26] MEDS ORDERED: DEXT10TA7 PO (17:55)
[2019-09-26] MEDS ORDERED: PROP10TA16 PO (17:55)
[2019-09-26] MEDS ORDERED: DULO60CA7 PO (17:55)
[2019-09-26] MEDS ORDERED: GABA300C10 PO (17:55)
[2019-09-26] MEDS ORDERED: CARB200T PO (17:55)
[2019-09-26] MEDS ORDERED: CLON2TAB PO (17:55)
[2019-09-26 17:57] VITALS: BP 110/77
[2019-09-26 19:14] VITALS: BP 117/74
[2019-09-26] MEDS ORDERED: LORazepam 1MG TABLET PO ONE (19:30)
[2019-09-26] MEDS: BENZTROPINE 1 MG TABLET PO SCH (20:04)
[2019-09-26] MEDS: GABAPENTIN 300 MG CAPSULE PO SCH (20:04)
[2019-09-26] MEDS: CARBAMAZEPINE 200 MG TABLET PO SCH (20:04)
[2019-09-26] MEDS: PROPRANOLOL 10 MG TABLET PO SCH (22:05)
[2019-09-27] MEDS: PROPRANOLOL 10 MG TABLET PO SCH ×3 (05:49→21:30)
[2019-09-27 07:35] VITALS: BP 109/73
[2019-09-27] MEDS: GABAPENTIN 300 MG CAPSULE PO SCH ×3 (08:13→19:56)
[2019-09-27] MEDS: BENZTROPINE 1 MG TABLET PO SCH ×2 (08:13→19:56)
[2019-09-27] MEDS: DULOXETINE 30 MG CAPSULE.DR PO SCH (08:13)
[2019-09-27] MEDS: CARBAMAZEPINE 200 MG TABLET PO SCH ×2 (08:13→19:56)
[2019-09-27] MEDS: NICOTINE 21 MG/24 HR PATCH.TD24 TD SCH (08:41)
[2019-09-27 16:27] LABS: MICROSCOPIC NOT IND
[2019-09-27 16:37] LABS: CULTURE INDICATED? NO
[2019-09-27 19:29] VITALS: BP 119/78
[2019-09-28 06:26] VITALS: BP 118/81
[2019-09-28] MEDS: PROPRANOLOL 10 MG TABLET PO SCH ×3 (06:30→20:52)
[2019-09-28 07:24] VITALS: BP 116/76
[2019-09-28] MEDS: BENZTROPINE 1 MG TABLET PO SCH ×2 (09:11→20:51)
[2019-09-28] MEDS: CARBAMAZEPINE 200 MG TABLET PO SCH ×2 (09:11→20:51)
[2019-09-28] MEDS: GABAPENTIN 300 MG CAPSULE PO SCH ×3 (09:11→20:51)
[2019-09-28] MEDS: DULOXETINE 30 MG CAPSULE.DR PO SCH (09:11)
[2019-09-28] MEDS: NICOTINE 21 MG/24 HR PATCH.TD24 TD SCH (09:12)
[2019-09-28] MEDS ORDERED: BISACODYL 10 MG SUPP PR PRN (10:00)
[2019-09-28] MEDS ORDERED: ACETAMINOPHEN 325 MG TABLET ONE (10:00)
[2019-09-28] MEDS ORDERED: ONDANSETRON ODT 4 MG PO PRN (10:00)
[2019-09-28] MEDS ORDERED: ACETAMINOPHEN 325 MG TABLET PO PRN (10:00)
[2019-09-28] MEDS ORDERED: DOCUSATE 100 MG CAPSULE PO PRN (10:00)
[2019-09-28] MEDS ORDERED: POLYETHYLENE GLYCOL 17 GM PACKET PO PRN (10:00)
[2019-09-28] MEDS: HALOPERIDOL 5 MG TABLET PO PRN (17:39)
[2019-09-28 19:28] VITALS: BP 138/92
[2019-09-28] MEDS: MIRTAZAPINE 15 MG TABLET PO SCH (20:51)
[2019-09-29] MEDS: PROPRANOLOL 10 MG TABLET PO SCH ×3 (06:39→21:07)
[2019-09-29 07:29] VITALS: BP 145/89
[2019-09-29] MEDS: CARBAMAZEPINE 200 MG TABLET PO SCH ×2 (08:36→21:01)
[2019-09-29] MEDS: DULOXETINE 30 MG CAPSULE.DR PO SCH (08:36)
[2019-09-29] MEDS: BENZTROPINE 1 MG TABLET PO SCH ×2 (08:36→21:01)
[2019-09-29] MEDS: NICOTINE 21 MG/24 HR PATCH.TD24 TD SCH (08:36)
[2019-09-29] MEDS: GABAPENTIN 300 MG CAPSULE PO SCH ×3 (08:36→21:01)
[2019-09-29] MEDS: HALOPERIDOL 5 MG TABLET PO PRN ×2 (08:45→17:47)
[2019-09-29 19:37] VITALS: BP 110/71
[2019-09-29] MEDS: MIRTAZAPINE 15 MG TABLET PO SCH (21:02)
[2019-09-30] MEDS: PROPRANOLOL 10 MG TABLET PO SCH ×3 (05:39→21:08)
[2019-09-30 07:32] VITALS: BP 121/80
[2019-09-30] MEDS: HALOPERIDOL 5 MG TABLET PO PRN ×2 (08:43→18:23)
[2019-09-30] MEDS: GABAPENTIN 300 MG CAPSULE PO SCH ×3 (08:43→21:08)
[2019-09-30] MEDS: NICOTINE 21 MG/24 HR PATCH.TD24 TD SCH (08:43)
[2019-09-30] MEDS: BENZTROPINE 1 MG TABLET PO SCH ×2 (08:43→21:08)
[2019-09-30] MEDS: CARBAMAZEPINE 200 MG TABLET PO SCH ×2 (08:44→21:08)
[2019-09-30] MEDS: DULOXETINE 30 MG CAPSULE.DR PO SCH (08:44)
[2019-09-30 14:40] VITALS: BP 158/109
[2019-09-30 15:25] LABS: CULTURE INDICATED? YES; MICROSCOPIC INDICATED
[2019-09-30] MEDS: HYDROcodone/APAP 5/325 TABLET PO PRN (18:23)
[2019-09-30 18:57] LABS: ANION GAP 8 mmol/L (5-15); CALCIUM 8.5 mg/dL (8.5-10.1); CHLORIDE 108 mmol/L (98-107); CREATININE 0.97 mg/dL (0.7-1.3)
[2019-09-30 19:36] VITALS: BP 158/107
[2019-09-30 20:51] LABS: BASOPHILS # (AUTO) 0.03 x10^3/uL (0-0.1); BASOPHILS % (AUTO) 0 % (0-1); EOSINOPHILS # (AUTO) 0.12 x10^3/uL (0-0.4); EOSINOPHILS % (AUTO) 2 % (1-7); LYMPHOCYTES # (AUTO) 2.21 x10^3/uL (1-3.4); LYMPHOCYTES % (AUTO) 28 % (22-44); MD NO; MEAN CORPUSCULAR HEMOGLOBIN 30.7 pg (27.5-34.5); MEAN CORPUSCULAR HGB CONC 33.5 g/dL (33.2-36.2); MEAN CORPUSCULAR VOLUME 91.6 fL (81-97); MEAN PLATELET VOLUME 8.1 fL (7.4-10.4); MONOCYTES % (AUTO) 10 % (2-9); NEUTROPHILS # (AUTO) 4.82 x10^3/uL (1.8-6.8); NEUTROPHILS % (AUTO) 60 % (42-75); PLATELET COUNT 230 x10^3/uL (130-400); RED BLOOD COUNT 4.91 x10^6/uL (4.38-5.82); RED CELL DISTRIBUTION WIDTH 14.5 % (9.4-14.8)
[2019-09-30] MEDS: MIRTAZAPINE 15 MG TABLET PO SCH (21:08)
[2019-10-01] MEDS: PROPRANOLOL 10 MG TABLET PO SCH ×3 (05:52→20:26)
[2019-10-01] MEDS: HYDROcodone/APAP 5/325 TABLET PO PRN ×4 (05:57→22:01)
[2019-10-01 07:22] VITALS: BP 108/75
[2019-10-01] MEDS: HALOPERIDOL 5 MG TABLET PO PRN ×2 (08:29→16:31)
[2019-10-01] MEDS: CARBAMAZEPINE 200 MG TABLET PO SCH ×2 (08:29→20:26)
[2019-10-01] MEDS: BENZTROPINE 1 MG TABLET PO SCH ×2 (08:29→20:26)
[2019-10-01] MEDS: DULOXETINE 30 MG CAPSULE.DR PO SCH (08:29)
[2019-10-01] MEDS: NICOTINE 21 MG/24 HR PATCH.TD24 TD SCH (08:29)
[2019-10-01] MEDS: GABAPENTIN 300 MG CAPSULE PO SCH ×3 (08:29→20:25)
[2019-10-01 19:32] VITALS: BP 109/72
[2019-10-01] MEDS: MIRTAZAPINE 15 MG TABLET PO SCH (20:26)
[2019-10-02] MEDS: HYDROcodone/APAP 5/325 TABLET PO PRN ×5 (02:05→19:30)
[2019-10-02] MEDS: PROPRANOLOL 10 MG TABLET PO SCH ×3 (06:03→20:52)
[2019-10-02 07:23] VITALS: BP 117/73
[2019-10-02] MEDS: GABAPENTIN 300 MG CAPSULE PO SCH ×3 (07:59→20:51)
[2019-10-02] MEDS: CARBAMAZEPINE 200 MG TABLET PO SCH ×2 (07:59→20:52)
[2019-10-02] MEDS: DULOXETINE 30 MG CAPSULE.DR PO SCH (08:00)
[2019-10-02] MEDS: NICOTINE 21 MG/24 HR PATCH.TD24 TD SCH (08:00)
[2019-10-02] MEDS: BENZTROPINE 1 MG TABLET PO SCH ×2 (08:00→20:51)
[2019-10-02] MEDS: HALOPERIDOL 5 MG TABLET PO PRN ×2 (08:04→18:31)
[2019-10-02 19:31] VITALS: BP 121/83
[2019-10-02] MEDS: MIRTAZAPINE 15 MG TABLET PO SCH (20:52)
[2019-10-03] MEDS: HYDROcodone/APAP 5/325 TABLET PO PRN ×4 (00:40→14:49)
[2019-10-03] MEDS: PROPRANOLOL 10 MG TABLET PO SCH ×3 (06:25→20:35)
[2019-10-03 07:48] VITALS: BP 109/82
[2019-10-03] MEDS: NICOTINE 21 MG/24 HR PATCH.TD24 TD SCH (08:43)
[2019-10-03] MEDS: BENZTROPINE 1 MG TABLET PO SCH ×2 (08:43→20:35)
[2019-10-03] MEDS: DULOXETINE 30 MG CAPSULE.DR PO SCH (08:43)
[2019-10-03] MEDS: CARBAMAZEPINE 200 MG TABLET PO SCH ×2 (08:43→20:35)
[2019-10-03] MEDS: GABAPENTIN 300 MG CAPSULE PO SCH ×3 (08:43→20:35)
[2019-10-03] MEDS: HALOPERIDOL 5 MG TABLET PO PRN ×2 (08:44→20:38)
[2019-10-03] MEDS ORDERED: HALO5TAB5 PO (15:14)
[2019-10-03] MEDS ORDERED: NICO-487 TD (15:14)
[2019-10-03] MEDS ORDERED: BENZ1TAB61 PO (15:14)
[2019-10-03] MEDS ORDERED: MIRT-34 PO (15:14)
[2019-10-03] MEDS ORDERED: CARB200T4 PO (15:14)
[2019-10-03] MEDS ORDERED: DIPH50CA PO (15:14)
[2019-10-03] MEDS ORDERED: PROP10TA16 PO (15:14)
[2019-10-03] MEDS ORDERED: DULO30CA2 PO (15:14)
[2019-10-03 19:48] VITALS: BP 115/72
[2019-10-03] MEDS: MIRTAZAPINE 15 MG TABLET PO SCH (20:35)
[2019-10-04 05:30] VITALS: BP 107/73
[2019-10-04] MEDS: PROPRANOLOL 10 MG TABLET PO SCH (05:50)
[2019-10-04 06:51] VITALS: BP 124/87
[2019-10-04] MEDS: HALOPERIDOL 5 MG TABLET PO PRN (08:01)
[2019-10-04] MEDS: BENZTROPINE 1 MG TABLET PO SCH (08:01)
[2019-10-04] MEDS: GABAPENTIN 300 MG CAPSULE PO SCH (08:01)
[2019-10-04] MEDS: CARBAMAZEPINE 200 MG TABLET PO SCH (08:01)
[2019-10-04] MEDS: DULOXETINE 30 MG CAPSULE.DR PO SCH (08:01)
[2019-10-04] MEDS: NICOTINE 21 MG/24 HR PATCH.TD24 TD SCH (08:05)
== END 2019-10-04 10:15 | disposition home or self-care (01) | DRG 885 ==
LOC: 3E 15:24
PROVIDERS: ADMIT Psychiatry & Neurology Psychosomatic Medicine; ATTEND Psychiatry & Neurology Psychosomatic Medicine
DX: F25.1 Schizoaffective disorder, depressive type (principal); F10.21 Alcohol dependence, in remission; F17.210 Nicotine dependence, cigarettes, uncomplicated; F41.1 Generalized anxiety disorder; F43.10 Post-traumatic stress disorder, unspecified; F90.9 Attention-deficit hyperactivity disorder, unspecified type; I10 Essential (primary) hypertension; N20.0 Calculus of kidney; N27.0 Small kidney, unilateral; R31.0 Gross hematuria; Z79.899 Other long term (current) drug therapy; Z80.51 Family history of malignant neoplasm of kidney; Z82.49 Family history of ischemic heart disease and other diseases of the circulatory system; Z91.5 Personal history of self-harm; F98.8 Other specified behavioral and emotional disorders with onset usually occurring in childhood and adolescence; Z83.3 Family history of diabetes mellitus
CPT/HCPCS: 36415; 71045; 76770; 80048; 80061; 81001; 81003; 85025; 87086; 93005

== ENCOUNTER 2019-10-12 11:41 | Emergency (ER) | payer MEDICAID ==
[~2019-10-12] VITALS: Ht 208.3 cm; Wt 105.0 kg
[~2019-10-12 11:41] MED LIST changes: +BENZ1TAB61 PO; +BUPR150T73 PO; +CARB200T4 PO; +DEXT10TA7 PO; +DIPH50CA PO; +DULO30CA2 PO; +MIRT-34 PO; +NICO-487 TD
[2019-10-12 11:55] VITALS: BP 126/94
--- NOTE | 2019-10-12 12:02 | NUR ---
cyndi. report received from ems. detox from heroin/adderall/clonipin. last use 3 days ago. Pt is SI. denies HI/ pt c/o persaud/chills/na/v/d x 3 days. pt's aox4. resps even and unlabored. bp/spo2 monitors in place. call light within reach. edmd at bedside to evaluate at this time.
--- NOTE | 2019-10-12 12:06 | NUR ---
sitter requesting at this time. pt's belongings put into 2 bags and put into the locker.
[2019-10-12 12:27] LABS: BASOPHILS # (AUTO) 0.05 x10^3/uL (0-0.1); BASOPHILS % (AUTO) 1 % (0-1); EOSINOPHILS # (AUTO) 0.25 x10^3/uL (0-0.4); EOSINOPHILS % (AUTO) 3 % (1-7); LYMPHOCYTES # (AUTO) 1.89 x10^3/uL (1-3.4); LYMPHOCYTES % (AUTO) 22 % (22-44); MD NO; MEAN CORPUSCULAR HEMOGLOBIN 30.8 pg (27.5-34.5); MEAN CORPUSCULAR HGB CONC 33.4 g/dL (33.2-36.2); MEAN PLATELET VOLUME 8.2 fL (7.4-10.4); MONOCYTES # (AUTO) 0.97 x10^3/uL (0.2-0.8); MONOCYTES % (AUTO) 11 % (2-9); NEUTROPHILS # (AUTO) 5.42 x10^3/uL (1.8-6.8); NEUTROPHILS % (AUTO) 63 % (42-75); PLATELET COUNT 235 x10^3/uL (130-400); RED BLOOD COUNT 5.02 x10^6/uL (4.38-5.82); RED CELL DISTRIBUTION WIDTH 15.6 % (9.4-14.8)
[2019-10-12 12:35] LABS: ANION GAP 4 mmol/L (5-15); CALCIUM 8.6 mg/dL (8.5-10.1); CHLORIDE 110 mmol/L (98-107); CREATININE 0.94 mg/dL (0.7-1.3)
== END 2019-10-12 13:10 | disposition home or self-care (01) ==
LOC: ED 13:00
DX: F11.10 Opioid abuse, uncomplicated (principal); F19.939 Other psychoactive substance use, unspecified with withdrawal, unspecified; R11.2 Nausea with vomiting, unspecified
CPT/HCPCS: 36415; 80048; 85025; 99283

== ENCOUNTER 2019-11-08 08:20 | Emergency (ER) | payer MEDICAID ==
[~2019-11-08] VITALS: Ht 188 cm; Wt 105.0 kg
[2019-11-08 08:22] VITALS: BP 121/84
[2019-11-08] MEDS ORDERED: SODIUM CHLORIDE FLUSH 10ML SYR IVF ONE (08:30)
[2019-11-08] MEDS ORDERED: MORPHINE SULFATE 4 MG/ML, 1ML IVPush PRN (08:30)
[2019-11-08] MEDS ORDERED: ONDANSETRON 2MG/ML, 2ML IVPush ONE (08:30)
[2019-11-08] MEDS ORDERED: MORPHINE SULFATE 4 MG/ML, 1ML ONE (08:42)
[2019-11-08] MEDS ORDERED: ONDANSETRON 2MG/ML, 2ML ONE (08:42)
[2019-11-08 08:48] LABS: BASOPHILS # (AUTO) 0.08 x10^3/uL (0-0.1); BASOPHILS % (AUTO) 1 % (0-1); EOSINOPHILS # (AUTO) 0.17 x10^3/uL (0-0.4); EOSINOPHILS % (AUTO) 2 % (1-7); LYMPHOCYTES # (AUTO) 1.86 x10^3/uL (1-3.4); LYMPHOCYTES % (AUTO) 22 % (22-44); MD NO; MEAN CORPUSCULAR HEMOGLOBIN 30.8 pg (27.5-34.5); MEAN CORPUSCULAR VOLUME 93.5 fL (81-97); MEAN PLATELET VOLUME 7.5 fL (7.4-10.4); MONOCYTES # (AUTO) 1.14 x10^3/uL (0.2-0.8); MONOCYTES % (AUTO) 13 % (2-9); NEUTROPHILS # (AUTO) 5.28 x10^3/uL (1.8-6.8); NEUTROPHILS % (AUTO) 62 % (42-75); PLATELET COUNT 289 x10^3/uL (130-400); RED BLOOD COUNT 4.85 x10^6/uL (4.38-5.82)
--- NOTE | 2019-11-08 08:58 | NUR ---
PT IN BED, RESPIRARIONS EVEN AND UNLABORED, NO SIGNS OF DISTRESS, WILL CONTINUE TO MONITOR.
[2019-11-08 08:59] LABS: ALANINE AMINOTRANSFERASE 21 U/L (12-78); ALBUMIN 3.4 g/dL (3.4-5.0); ANION GAP 4 mmol/L (5-15); CALCIUM 8.5 mg/dL (8.5-10.1); CHLORIDE 109 mmol/L (98-107)
[2019-11-08 09:02] LABS: ALKALINE PHOSPHATASE 89 U/L (45-117); BILIRUBIN,TOTAL 0.3 mg/dL (0.2-1.0); TOTAL PROTEIN 6.7 g/dL (6.4-8.2)
[2019-11-08] MEDS ORDERED: OMEP-110 PO (09:04)
--- NOTE | 2019-11-08 09:11 | NUR ---
PT IN BED ON PHONE, NO SIGNS OF DISTRESS.
--- NOTE | 2019-11-08 09:20 | NUR ---
PT TO CT.
--- NOTE | 2019-11-08 09:33 | NUR ---
PT BACK FROM CT, EDUCATED ON CLEAN CATCH URINE.
[2019-11-08] MEDS ORDERED: OMNIPAQUE 350 MG/ML, 100ML BOTTLE ONE (09:35)
[2019-11-08 10:13] LABS: MICROSCOPIC NOT IND
[2019-11-08 10:19] LABS: CULTURE INDICATED? NO
--- NOTE | 2019-11-08 10:19 | NUR ---
PT RESTING IN BED, ON PHONE NO SIGNS OF DISTRESS.
== END 2019-11-08 11:08 | disposition home or self-care (01) ==
LOC: ED 08:23
DX: R10.31 Right lower quadrant pain (principal); R11.2 Nausea with vomiting, unspecified; I10 Essential (primary) hypertension; F17.210 Nicotine dependence, cigarettes, uncomplicated
CPT/HCPCS: 36415; 74177; 80053; 81003; 85025; 96374; 96375; 99285; J2270; J2405; Q9967

== ENCOUNTER 2019-11-25 20:58 | Emergency (ER) | payer MEDICAID ==
[~2019-11-25] VITALS: Ht 188 cm; Wt 110.0 kg
[2019-11-25 21:01] VITALS: BP 158/106
--- NOTE | 2019-11-25 21:06 | NUR ---
HYACINTH PT STATES HE HAS SI, VISUAL AND AUDITORY HALLUCINATIONS, PT STATES HE HAS A LOT OF PRESCRIPTION DRUGS HE CAN USE FOR SA.
[2019-11-25 21:43] LABS: BASOPHILS # (AUTO) 0.03 x10^3/uL (0-0.1); BASOPHILS % (AUTO) 0 % (0-1); EOSINOPHILS # (AUTO) 0.13 x10^3/uL (0-0.4); EOSINOPHILS % (AUTO) 2 % (1-7); LYMPHOCYTES # (AUTO) 2.09 x10^3/uL (1-3.4); LYMPHOCYTES % (AUTO) 25 % (22-44); MD NO; MEAN CORPUSCULAR HEMOGLOBIN 31.3 pg (27.5-34.5); MEAN CORPUSCULAR VOLUME 94.8 fL (81-97); MEAN PLATELET VOLUME 7.9 fL (7.4-10.4); MONOCYTES # (AUTO) 0.64 x10^3/uL (0.2-0.8); MONOCYTES % (AUTO) 8 % (2-9); NEUTROPHILS # (AUTO) 5.34 x10^3/uL (1.8-6.8); NEUTROPHILS % (AUTO) 65 % (42-75); PLATELET COUNT 291 x10^3/uL (130-400); RED BLOOD COUNT 4.98 x10^6/uL (4.38-5.82); RED CELL DISTRIBUTION WIDTH 14.9 % (9.4-14.8)
--- NOTE | 2019-11-25 21:48 | NUR ---
RESTING ON GURNEY, NO ACUTE DISTRESS NOTED. SITTER AT DOORWAY FOR SAFETY MONITORING.
[2019-11-25 21:51] LABS: ALBUMIN 3.8 g/dL (3.4-5.0); ANION GAP 6 mmol/L (5-15); CALCIUM 9.5 mg/dL (8.5-10.1); CHLORIDE 111 mmol/L (98-107); CREATININE 1.08 mg/dL (0.7-1.3); SALICYLATE LEVEL 3.2 mg/dL (2.8-20.0)
[2019-11-25 22:22] LABS: AMPHETAMINE SCREEN, URINE Negative (Negative); BARBITURATE SCREEN, URINE Negative (Negative); BENZODIAZEPINE SCREEN, URINE Negative (Negative); CANNABINOID SCREEN, URINE Negative (Negative); COCAINE SCREEN, URINE Negative (Negative); METHADONE SCREEN, URINE Negative (Negative); OPIATE SCREEN, URINE Negative (Negative)
--- NOTE | 2019-11-25 22:30 | NUR ---
TELEPSYCH CONSULT TAKING PLACE NOW.
--- NOTE | 2019-11-25 22:40 | NUR ---
RN SPOKE WITH SOC TELEPSYCH MD, PER SOC MD WILL RETURN CALL WITH RECOMMENDATIONS.
--- NOTE | 2019-11-25 23:05 | NUR ---
CALL FROM SOC MD, PER SOC MD PT MEETS [facility] FOR VOLUNTARY INPATIENT PSYCH TREATMENT, MEDS RECOMMENDED ARE HALDOL 10MG QHS.WILL FAX RECOMMENDATIONS FOR MD TO REVIEW.
--- NOTE | 2019-11-26 | NUR ---
TP RN: PER SOC RECOMMENDATION, PT ON LEGAL HOLD. PACKET FAXED TO [facility], [facility], & [facility] CONFIRMATION.
--- NOTE | 2019-11-26 00:39 | NUR ---
TP RN: PER [facility] RN, NO BEDS AVAILABLE AT THIS TIME. WILL KEEP REFERAL FOR POSSIBLE LATER ADMIT
--- NOTE | 2019-11-26 00:59 | NUR ---
PT SLEEPING, EVEN UNLABORED RESPIRATIONS, SITTER AT BEDSIDE FOR SAFETY MONITORING.
--- NOTE | 2019-11-26 01:41 | NUR ---
REPORT GIVEN TO ARIANA AT [facility], SHE WILL RETURN CALL ONCE MD AT [facility].
--- NOTE | 2019-11-26 01:55 | NUR ---
TP RN: [facility]ILVA ACCEPTING PT. ACCEPTING MD MIRELES.
--- NOTE | 2019-11-26 02:39 | NUR ---
SLEEPING, RESPIRATIONS EVEN AND UNLABORED. SITTER AT DOORWAY FOR SAFETY MONITORING.
--- NOTE | 2019-11-26 04:05 | NUR ---
[facility]ALLIE STAFF HERE FOR TRANSORT. PT GOING TO [facility].
== END 2019-11-26 04:08 ==
LOC: ED 22:30
DX: F32.1 Major depressive disorder, single episode, moderate (principal)
CPT/HCPCS: 36415; 80048; 80307; 82040; 85025; 99285

== ENCOUNTER 2020-02-18 19:44 | Emergency (ER) | payer MEDICAID ==
[~2020-02-18] VITALS: Ht 188 cm; Wt 104.5 kg
[2020-02-18 19:48] VITALS: BP 125/75
[2020-02-18] MEDS ORDERED: DIPHENHYDRAMINE 50 MG/ML, 1ML IVPush ONE (20:00)
[2020-02-18] MEDS ORDERED: SODIUM CHLORIDE FLUSH 10ML SYR IVF ONE (20:00)
[2020-02-18] MEDS ORDERED: MORPHINE SULFATE 4 MG/ML, 1ML IVPush PRN (20:00)
[2020-02-18] MEDS ORDERED: ONDANSETRON 2MG/ML, 2ML IVPush ONE (20:00)
[2020-02-18] MEDS ORDERED: SODIUM CHLORIDE 0.9% 1,000ML IVBOLUS ONE (20:00)
[2020-02-18 20:23] LABS: BASOPHILS # (AUTO) 0.01 x10^3/uL (0-0.1); BASOPHILS % (AUTO) 0 % (0-1); EOSINOPHILS # (AUTO) 0.07 x10^3/uL (0-0.4); EOSINOPHILS % (AUTO) 1 % (1-7); LYMPHOCYTES # (AUTO) 0.72 x10^3/uL (1-3.4); LYMPHOCYTES % (AUTO) 5 % (22-44); MD NO; MEAN CORPUSCULAR HEMOGLOBIN 29.9 pg (27.5-34.5); MEAN CORPUSCULAR HGB CONC 32.8 g/dL (33.2-36.2); MEAN CORPUSCULAR VOLUME 91.2 fL (81-97); MEAN PLATELET VOLUME 8.8 fL (7.4-10.4); MONOCYTES # (AUTO) 0.65 x10^3/uL (0.2-0.8); MONOCYTES % (AUTO) 5 % (2-9); NEUTROPHILS # (AUTO) 12.94 x10^3/uL (1.8-6.8); NEUTROPHILS % (AUTO) 90 % (42-75); PLATELET COUNT 292 x10^3/uL (130-400); RED CELL DISTRIBUTION WIDTH 14.6 % (9.4-14.8)
[2020-02-18] MEDS ORDERED: MORPHINE SULFATE 4 MG/ML, 1ML ONE (20:23)
[2020-02-18 20:24] LABS: ALANINE AMINOTRANSFERASE 29 U/L (12-78); ANION GAP 1 mmol/L (5-15); CALCIUM 10.3 mg/dL (8.5-10.1); CHLORIDE 110 mmol/L (98-107); CREATININE 1.45 mg/dL (0.7-1.3)
[2020-02-18] MEDS ORDERED: ONDANSETRON 2MG/ML, 2ML ONE (20:24)
[2020-02-18] MEDS ORDERED: DIPHENHYDRAMINE 50 MG/ML, 1ML ONE (20:25)
[2020-02-18 20:26] LABS: ALKALINE PHOSPHATASE 76 U/L (45-117); BILIRUBIN,TOTAL 0.2 mg/dL (0.2-1.0); TOTAL PROTEIN 7.7 g/dL (6.4-8.2)
--- NOTE | 2020-02-18 20:56 | NUR ---
REPORT FROM ANDRE PATEL.
[2020-02-18 21:17] LABS: MICROSCOPIC AUTO
--- NOTE | 2020-02-18 21:39 | NUR ---
Patient/Caregiver given discharge instructions and they have confirmed that they understand the instructions. Patient ambulatory with steady gait.
== END 2020-02-18 21:43 | disposition home or self-care (01) ==
LOC: ED 21:20
DX: R10.11 Right upper quadrant pain (principal); R11.2 Nausea with vomiting, unspecified; I10 Essential (primary) hypertension; F17.200 Nicotine dependence, unspecified, uncomplicated
CPT/HCPCS: 36415; 76700; 80053; 81001; 83690; 85025; 96361; 96374; 96375; 99284; J1200; J2270; J2405; J7030

== ENCOUNTER 2020-06-17 04:08 | Emergency (ER) | payer MEDICAID ==
[~2020-06-17] VITALS: Ht 188 cm; Wt 96.0 kg
[2020-06-17] MEDS ORDERED: MORPHINE SULFATE 4 MG/ML, 1ML ONE ×2 (04:56→05:39)
[2020-06-17] MEDS ORDERED: ONDANSETRON 2MG/ML, 2ML ONE (04:56)
[2020-06-17] MEDS: MORPHINE SULFATE 4 MG/ML, 1ML IVPush PRN ×2 (04:58→05:47)
[2020-06-17] MEDS ORDERED: SODIUM CHLORIDE FLUSH 10ML SYR IVF ONE (05:00)
[2020-06-17] MEDS ORDERED: ONDANSETRON 2MG/ML, 2ML IVPush ONE (05:00)
--- NOTE | 2020-06-17 05:01 | NUR ---
pt with c/o pain in right abd and right flank that started last night. pain 8/10. PIV placed and pt medicated per for pain and nausea per emar.
[2020-06-17 05:22] LABS: BASOPHILS % (AUTO) 1 % (0-1); EOSINOPHILS % (AUTO) 2 % (1-7); LYMPHOCYTES % (AUTO) 30 % (22-44); MEAN CORPUSCULAR HEMOGLOBIN 29.6 pg (27.5-34.5); MEAN CORPUSCULAR HGB CONC 33.1 g/dL (33.2-36.2); MEAN PLATELET VOLUME 8.4 fL (7.4-10.4); MONOCYTES % (AUTO) 11 % (2-9); NEUTROPHILS % (AUTO) 55 % (42-75); PLATELET COUNT 267 x10^3/uL (130-400); RED BLOOD COUNT 5.03 x10^6/uL (4.38-5.82); RED CELL DISTRIBUTION WIDTH 15.2 % (9.4-14.8)
[2020-06-17 05:30] LABS: ANION GAP 6 mmol/L (5-15); CALCIUM 9.3 mg/dL (8.5-10.1); CHLORIDE 109 mmol/L (98-107)
[2020-06-17 05:33] LABS: ALANINE AMINOTRANSFERASE 28 U/L (12-78); ALKALINE PHOSPHATASE 69 U/L (45-117); BILIRUBIN,TOTAL 0.4 mg/dL (0.2-1.0)
[2020-06-17 05:35] LABS: MD NO
--- NOTE | 2020-06-17 05:47 | NUR ---
PT STILL WITH PAIN. PT MEDICATED FOR PAIN PER EMAR FOR A SECOND TIME.
[2020-06-17 05:53] LABS: MICROSCOPIC AUTO
[2020-06-17 07:00] VITALS: BP 106/66
== END 2020-06-17 07:06 | disposition home or self-care (01) ==
LOC: ED 05:35
DX: R31.29 Other microscopic hematuria (principal); R10.9 Unspecified abdominal pain; R30.0 Dysuria; M54.9 Dorsalgia, unspecified; R11.2 Nausea with vomiting, unspecified; I10 Essential (primary) hypertension; Z88.9 Allergy status to unspecified drugs, medicaments and biological substances; Z79.899 Other long term (current) drug therapy
CPT/HCPCS: 36415; 74176; 80053; 81001; 83690; 85025; 96374; 96375; 96376; 99284; J2270; J2405

== ENCOUNTER 2020-09-09 17:28 | Emergency (ER) | payer MEDICAID ==
[~2020-09-09] VITALS: Ht 188 cm; Wt 95.7 kg
[~2020-09-09 17:28] MED LIST changes: -NICO-487 TD; +NICO-587 TD
--- NOTE | 2020-09-09 17:56 | NUR ---
Been without psych meds for about 1 week. Pt reports they will receive the meds tomorrow. Severe tremors, visual and auditory hallucinations, nausea, sweating. Tremors visible. Prozac 40mg, seroquil 600mg at night and 200 mg in morning, clonapin 2 mg 3x/day.
--- NOTE | 2020-09-09 17:59 | NUR ---
Provider at bedside.
--- NOTE | 2020-09-09 18:13 | NUR ---
22 gauge IV started left hand.
[2020-09-09] MEDS ORDERED: LORazepam 2 MG/ML, 1ML IVPush PRN (18:30)
[2020-09-09] MEDS ORDERED: CHLORDIAZEPOXIDE 25 MG CAPSULE PO PRN (18:30)
--- NOTE | 2020-09-09 18:30 | NUR ---
Pt.'s [place] called- updated her over phone per pt.'s permission.
[2020-09-09] MEDS ORDERED: CHLORDIAZEPOXIDE 25 MG CAPSULE ONE (18:46)
[2020-09-09] MEDS ORDERED: LORazepam 2 MG/ML, 1ML ONE (18:46)
--- NOTE | 2020-09-09 18:51 | NUR ---
1mg Ativan and 25mg Librium administered.
[2020-09-09 18:52] VITALS: BP 135/93
--- NOTE | 2020-09-09 19:11 | NUR ---
Pt feeling better, agrees with and understands discharge plan and instructions.
--- NOTE | 2020-09-09 19:12 | NUR ---
IV removed. Catheter intact, hemostasis achieved.
== END 2020-09-09 19:13 | disposition home or self-care (01) ==
LOC: ED 18:31
DX: F13.139 Sedative, hypnotic or anxiolytic abuse with withdrawal, unspecified (principal)
CPT/HCPCS: 96374; 99283; J2060

== ENCOUNTER 2020-11-20 18:41 | Emergency (ER) | payer MEDICAID ==
[~2020-11-20] VITALS: Ht 188 cm; Wt 95.0 kg
[2020-11-20 19:09] LABS: BASOPHILS % (AUTO) 1 % (0-1); EOSINOPHILS % (AUTO) 11 % (1-7); LYMPHOCYTES % (AUTO) 26 % (22-44); MEAN CORPUSCULAR HEMOGLOBIN 30.4 pg (27.5-34.5); MEAN CORPUSCULAR HGB CONC 33.5 g/dL (33.2-36.2); MEAN PLATELET VOLUME 8.1 fL (7.4-10.4); MONOCYTES % (AUTO) 9 % (2-9); NEUTROPHILS % (AUTO) 54 % (42-75); PLATELET COUNT 206 x10^3/uL (130-400); RED BLOOD COUNT 4.45 x10^6/uL (4.38-5.82); RED CELL DISTRIBUTION WIDTH 16.2 % (9.4-14.8)
[2020-11-20 19:20] LABS: ALBUMIN 3.3 g/dL (3.4-5.0); ANION GAP 3 mmol/L (5-15); CALCIUM 8.5 mg/dL (8.5-10.1); CHLORIDE 113 mmol/L (98-107); CREATININE 0.97 mg/dL (0.7-1.3)
--- NOTE | 2020-11-20 19:21 | NUR ---
Pt to ER with c/o lower abd pain and left testicular pain. Pt with hx or torsion and Kidney stones. Pt received 200mcg of fent by EMS. Pt on monitor. UA provided and sent Pt to US.
[2020-11-20 19:47] LABS: MICROSCOPIC INDICATED
[2020-11-20 19:53] LABS: MD SCAN
[2020-11-20] MEDS ORDERED: MORPHINE SULFATE 4 MG/ML, 1ML ONE ×2 (19:59→22:08)
[2020-11-20] MEDS ORDERED: SODIUM CHLORIDE FLUSH 10ML SYR IVF ONE (20:00)
[2020-11-20] MEDS: MORPHINE SULFATE 4 MG/ML, 1ML IVPush PRN ×2 (20:01→22:11)
--- NOTE | 2020-11-20 20:16 | NUR ---
Pt medicated per order for pain. Pt states relief. Pt on monitor. Will continue to monitor.
--- NOTE | 2020-11-20 21:42 | NUR ---
Pt calm in bed. No changes. VSS. Will continue to monitor.
--- NOTE | 2020-11-20 22:14 | NUR ---
PT STATES HAIVNG INCREASED PAIN. PT MEDICATED PER ORDER. PROVIDER AT BEDSIDE. PT STATES PAIN HAS IMPROVED SINCE MEDS. PT REMAINS CALM WITH STABLE VS.
[2020-11-20 23:09] VITALS: BP 124/90
--- NOTE | 2020-11-20 23:10 | NUR ---
IV DC'd intact. Rx reviewed with patient. Patient/Caregiver given discharge instructions and they have confirmed that they understand the instructions. Patient ambulatory with steady gait.
== END 2020-11-20 23:12 | disposition home or self-care (01) ==
LOC: ED 23:09
DX: N45.1 Epididymitis (principal); R31.0 Gross hematuria; I10 Essential (primary) hypertension; F17.200 Nicotine dependence, unspecified, uncomplicated
CPT/HCPCS: 36415; 74176; 76870; 80048; 81001; 82040; 85025; 96374; 96376; 99285; J2270

== ENCOUNTER 2020-11-21 11:45 | Emergency (ER) | payer MEDICAID ==
[~2020-11-21] VITALS: Ht 188 cm; Wt 95.0 kg
--- NOTE | 2020-11-21 11:52 | NUR ---
Pt on desk monitor, spo2, sleepy from fentayl. has not filled his antibiotcs, complains of pain to entire groin area and right testicle. h/o testicular torsion. Dropped to 84% RA on ambulance after fentanyl.
[2020-11-21] MEDS ORDERED: KETOROLAC 30 MG/1 ML ONE (12:16)
--- NOTE | 2020-11-21 12:18 | NUR ---
PT MEDICATED, ON MONITOR
[2020-11-21] MEDS ORDERED: KETOROLAC 30 MG/1 ML IVPush ONE (12:30)
--- NOTE | 2020-11-21 13:20 | NUR ---
pt calm, resting, eyes closed. chart up for ERP.
--- NOTE | 2020-11-21 14:12 | NUR ---
pt away to US via tech.
--- NOTE | 2020-11-21 14:51 | NUR ---
ERP aware of patients request for pain medication and will go into see pt.
[2020-11-21] MEDS ORDERED: MORPHINE SULFATE 4 MG/ML, 1ML IVPush ONE (15:00)
[2020-11-21] MEDS ORDERED: MORPHINE SULFATE 4 MG/ML, 1ML ONE (15:16)
--- NOTE | 2020-11-21 15:29 | NUR ---
pt sitting on gurney with no signs or symptoms of acute distress noted respirations even and unlabored, medicated as ordered for r flank pain rated 7/10. pt verbalizes appreciation for cares and concern, states that he will need a taxi ride home. pt informed that one can be provided at in, pt encouraged to be patient while papers are made ready. pt verbalizes understanding and agreement with plan of care.
[2020-11-21 15:55] VITALS: BP 115/75
== END 2020-11-21 15:57 | disposition home or self-care (01) ==
LOC: ED 15:45
DX: I86.1 Scrotal varices (principal); I10 Essential (primary) hypertension
CPT/HCPCS: 72110; 76770; 76870; 96374; 96375; 99285; J1885; J2270

== ENCOUNTER 2020-11-29 18:51 | Emergency (ER) | payer MEDICAID ==
[~2020-11-29] VITALS: Ht 180.3 cm; Wt 88.0 kg
[2020-11-29] MEDS ORDERED: SODIUM CHLORIDE FLUSH 10ML SYR IVF ONE (19:00)
[2020-11-29] MEDS ORDERED: ONDANSETRON 2MG/ML, 2ML IVPush ONE (19:00)
[2020-11-29] MEDS ORDERED: MAALOX/HYOSCYAMINE/LIDOCAINE 45 ML BTL PO ONE (19:00)
[2020-11-29] MEDS ORDERED: FAMOTIDINE 20 MG/2 ML IVPush ONE (19:00)
[2020-11-29] MEDS ORDERED: SODIUM CHLORIDE 0.9% 1,000ML IVBOLUS ONE (19:00)
[2020-11-29] MEDS ORDERED: MAALOX/HYOSCYAMINE/LIDOCAINE 45 ML BTL ONE (19:03)
[2020-11-29] MEDS ORDERED: MORPHINE SULFATE 4 MG/ML, 1ML ONE ×2 (19:28→20:07)
[2020-11-29] MEDS ORDERED: ONDANSETRON 2MG/ML, 2ML ONE (19:28)
[2020-11-29] MEDS ORDERED: FAMOTIDINE 20 MG/2 ML ONE (19:29)
[2020-11-29] MEDS: MORPHINE SULFATE 4 MG/ML, 1ML IVPush PRN ×2 (19:30→20:08)
--- NOTE | 2020-11-29 19:31 | NUR ---
PT TAKEN TO ULTRASOUND
[2020-11-29 19:44] LABS: BASOPHILS % (AUTO) 1 % (0-1); EOSINOPHILS % (AUTO) 3 % (1-7); LYMPHOCYTES % (AUTO) 28 % (22-44); MEAN CORPUSCULAR HEMOGLOBIN 30.3 pg (27.5-34.5); MEAN PLATELET VOLUME 8.1 fL (7.4-10.4); MONOCYTES % (AUTO) 12 % (2-9); NEUTROPHILS % (AUTO) 56 % (42-75); PLATELET COUNT 246 x10^3/uL (130-400); RED BLOOD COUNT 4.72 x10^6/uL (4.38-5.82); RED CELL DISTRIBUTION WIDTH 16.9 % (9.4-14.8)
[2020-11-29 19:45] LABS: MD NO
[2020-11-29 19:52] LABS: ANION GAP 6 mmol/L (5-15); CALCIUM 9.4 mg/dL (8.5-10.1); CHLORIDE 110 mmol/L (98-107)
--- NOTE | 2020-11-29 19:52 | NUR ---
returns from us
[2020-11-29 19:57] LABS: ALANINE AMINOTRANSFERASE 27 U/L (12-78); ALKALINE PHOSPHATASE 77 U/L (45-117); BILIRUBIN,TOTAL 0.3 mg/dL (0.2-1.0); CREATININE 1.04 mg/dL (0.7-1.3); TOTAL PROTEIN 6.8 g/dL (6.4-8.2)
[2020-11-29 20:09] VITALS: BP 157/103
[2020-11-29 20:17] LABS: TROPONIN I < 0.015 ng/mL (0.000-0.045)
--- NOTE | 2020-11-29 20:51 | NUR ---
PT AMBULATES TO EXIT. NO COMPLICATIIONS
== END 2020-11-29 20:52 | disposition home or self-care (01) ==
LOC: ED 19:57
DX: K29.00 Acute gastritis without bleeding (principal); I10 Essential (primary) hypertension; R94.31 Abnormal electrocardiogram [ECG] [EKG]
CPT/HCPCS: 36415; 76700; 80053; 83690; 84484; 85025; 93005; 96361; 96374; 96375; 96376; 99285; J2270; J2405; J7030

== ENCOUNTER 2020-11-30 16:36 | Emergency (ER) | payer MEDICAID ==
[~2020-11-30] VITALS: Ht 188 cm; Wt 98.1 kg
[~2020-11-30 16:36] MED LIST changes: +MIRT-14 PO; -MIRT-34 PO
--- NOTE | 2020-11-30 16:43 | NUR ---
BIB [facility]-c/o RUQ abd pain since yesterday, seen here last night for same and dx with pancreatitis. Pt reports pain worsening. Pt rates pain 9/10, reports fentanyl that EMS administered did not help. Pt positioned for comfort in bed. Continuous oxygen and BP monitors applied, all safety measures observed.
[2020-11-30] MEDS ORDERED: MAALOX/HYOSCYAMINE/LIDOCAINE 45 ML BTL ONE (17:09)
--- NOTE | 2020-11-30 17:11 | NUR ---
Pt medicated per MAR.
[2020-11-30 17:30] LABS: BASOPHILS % (AUTO) 1 % (0-1); EOSINOPHILS % (AUTO) 4 % (1-7); LYMPHOCYTES % (AUTO) 34 % (22-44); MEAN CORPUSCULAR HEMOGLOBIN 30.2 pg (27.5-34.5); MEAN CORPUSCULAR HGB CONC 33.3 g/dL (33.2-36.2); MEAN PLATELET VOLUME 7.6 fL (7.4-10.4); MONOCYTES % (AUTO) 11 % (2-9); NEUTROPHILS % (AUTO) 51 % (42-75); PLATELET COUNT 254 x10^3/uL (130-400); RED BLOOD COUNT 4.68 x10^6/uL (4.38-5.82); RED CELL DISTRIBUTION WIDTH 16.6 % (9.4-14.8)
[2020-11-30] MEDS ORDERED: MAALOX/HYOSCYAMINE/LIDOCAINE 45 ML BTL PO ONE (17:30)
[2020-11-30 17:42] LABS: ALANINE AMINOTRANSFERASE 26 U/L (12-78); ANION GAP 6 mmol/L (5-15); CALCIUM 9.2 mg/dL (8.5-10.1); CHLORIDE 110 mmol/L (98-107)
[2020-11-30 17:45] LABS: ALKALINE PHOSPHATASE 78 U/L (45-117); BILIRUBIN,TOTAL 0.4 mg/dL (0.2-1.0); TOTAL PROTEIN 7.1 g/dL (6.4-8.2)
--- NOTE | 2020-11-30 17:46 | NUR ---
Pt reports pain unchanged after medication, requesting additional pain meds. Dr. Jacinto made aware.
--- NOTE | 2020-11-30 18:40 | NUR ---
Dr. Jacinto at bedside to discuss POC with pt.
[2020-11-30 19:20] VITALS: BP 148/104
--- NOTE | 2020-11-30 19:38 | NUR ---
Patient/Caregiver given discharge instructions and they have confirmed that they understand the instructions. Patient ambulatory with steady gait.
[2020-12-22] MEDS ORDERED: QUET300T2 PO (01:29)
[2021-03-15] MEDS ORDERED: QUET200T2 PO (11:30)
== END 2020-11-30 19:36 | disposition home or self-care (01) ==
LOC: ED 17:20
DX: R10.13 Epigastric pain (principal); I10 Essential (primary) hypertension; F17.200 Nicotine dependence, unspecified, uncomplicated
CPT/HCPCS: 36415; 80053; 83690; 85025; 99283

== ENCOUNTER 2020-12-09 20:29 | Emergency (ER) | payer MEDICAID ==
[~2020-12-09] VITALS: Ht 188 cm; Wt 113.6 kg
[~2020-12-09 20:29] MED LIST changes: -MIRT-14 PO; +MIRT-34 PO
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
--- NOTE | 2020-12-09 20:47 | NUR ---
1:1 SITTER OUTSIDE ROOM. PT CALM, COOPERATIVE. RV'WD POC WITH HIM.
[2020-12-09] MEDS ORDERED: HALOPERIDOL 5 MG/ML ONE (21:17)
[2020-12-09] MEDS ORDERED: LORazepam 2 MG/ML, 1ML ONE (21:17)
[2020-12-09] MEDS ORDERED: HALOPERIDOL 5 MG/ML IM ONE (21:30)
[2020-12-09] MEDS ORDERED: LORazepam 2 MG/ML, 1ML IM ONE (21:30)
--- NOTE | 2020-12-09 21:34 | NUR ---
WATER PROVIDED. PT AMBULATED TO BR WITHOUT DIFFICULTY.
[2020-12-09 21:36] LABS: BASOPHILS % (AUTO) 1 % (0-1); EOSINOPHILS % (AUTO) 7 % (1-7); LYMPHOCYTES % (AUTO) 36 % (22-44); MEAN CORPUSCULAR HEMOGLOBIN 30.5 pg (27.5-34.5); MEAN CORPUSCULAR HGB CONC 33.7 g/dL (33.2-36.2); MEAN PLATELET VOLUME 8.2 fL (7.4-10.4); MONOCYTES % (AUTO) 14 % (2-9); NEUTROPHILS % (AUTO) 42 % (42-75); PLATELET COUNT 212 x10^3/uL (130-400); RED BLOOD COUNT 4.53 x10^6/uL (4.38-5.82); RED CELL DISTRIBUTION WIDTH 16.6 % (9.4-14.8)
[2020-12-09 21:37] LABS: MD NO
[2020-12-09 21:45] LABS: ALBUMIN 3.6 g/dL (3.4-5.0); ANION GAP 6 mmol/L (5-15); CALCIUM 8.7 mg/dL (8.5-10.1); CHLORIDE 110 mmol/L (98-107); SALICYLATE LEVEL 4.5 mg/dL (2.8-20.0)
[2020-12-09 21:48] LABS: ALANINE AMINOTRANSFERASE 23 U/L (12-78); ALKALINE PHOSPHATASE 72 U/L (45-117); BILIRUBIN,TOTAL 0.2 mg/dL (0.2-1.0); TOTAL PROTEIN 6.1 g/dL (6.4-8.2)
[2020-12-09 21:54] VITALS: BP 140/97
--- NOTE | 2020-12-09 21:58 | NUR ---
PT MEDICATED PER ORDERS. ON ALL MONITORS. SLEEPY. CONTINUES TO BE COOPERATIVE. SITTER REMAINS OUTSIDE ROOM.
[2020-12-09 22:27] LABS: AMPHETAMINE SCREEN, URINE Positive (Negative); BARBITURATE SCREEN, URINE Negative (Negative); BENZODIAZEPINE SCREEN, URINE Positive (Negative); CANNABINOID SCREEN, URINE Negative (Negative); COCAINE SCREEN, URINE Negative (Negative); METHADONE SCREEN, URINE Negative (Negative); OPIATE SCREEN, URINE Positive (Negative)
--- NOTE | 2020-12-09 23:20 | NUR ---
PT MOVED TO RM 38. REPORTED TO ANISHA POWELL.
--- NOTE | 2020-12-09 23:24 | NUR ---
REPORT FROM WESLEY RN
--- NOTE | 2020-12-09 23:42 | NUR ---
PT SLEEPING ON [facility]. SITTER AT DOORWAY
--- NOTE | 2020-12-09 23:50 | NUR ---
SURFACE GRINDING MACHINE HAND: [facility] AWARE OF PT. THEY STATE THAT THEY ONLY HAVE FEMALE BEDS AVAILABLE AT THIS TIME.
--- NOTE | 2020-12-10 00:02 | NUR ---
HOUSE MOVER HELPER: PACKET FAXED TO [facility], AND [facility] WITH CONFIRMATION RECIEVED.
--- NOTE | 2020-12-10 01:24 | NUR ---
REPORT TO [facility] ACCEPTING MD AND PT CAN GO ANA
--- NOTE | 2020-12-10 01:53 | NUR ---
TP RN: TRANSPORT AUTHORIZED BY [facility]. TO BE TRANSPORTED BY [facility] TO [facility]. DOCUMENTS READIED FOR TRANSPORT.
== END 2020-12-10 02:11 ==
LOC: ED 21:00
DX: R45.851 Suicidal ideations (principal); F15.151 Other stimulant abuse with stimulant-induced psychotic disorder with hallucinations; R25.8 Other abnormal involuntary movements; I10 Essential (primary) hypertension; F17.200 Nicotine dependence, unspecified, uncomplicated; Z88.6 Allergy status to analgesic agent; Z87.11 Personal history of peptic ulcer disease
CPT/HCPCS: 36415; 80053; 80299; 80307; 80320; 85025; 96372; 99285; J1630; J2060; 80329; G0480

== ENCOUNTER 2020-12-18 19:14 | Emergency (ER) | payer MEDICAID ==
[~2020-12-18] VITALS: Ht 188 cm; Wt 98.9 kg
[2020-12-18 20:23] LABS: BASOPHILS % (AUTO) 1 % (0-1); EOSINOPHILS % (AUTO) 4 % (1-7); LYMPHOCYTES % (AUTO) 32 % (22-44); MEAN CORPUSCULAR HEMOGLOBIN 30.3 pg (27.5-34.5); MEAN CORPUSCULAR HGB CONC 33.5 g/dL (33.2-36.2); MEAN PLATELET VOLUME 8.6 fL (7.4-10.4); MONOCYTES % (AUTO) 14 % (2-9); NEUTROPHILS % (AUTO) 49 % (42-75); PLATELET COUNT 238 x10^3/uL (130-400); RED BLOOD COUNT 4.95 x10^6/uL (4.38-5.82); RED CELL DISTRIBUTION WIDTH 16.2 % (9.4-14.8)
[2020-12-18 20:25] LABS: MD NO
[2020-12-18 20:27] LABS: ANION GAP 5 mmol/L (5-15); CALCIUM 9.4 mg/dL (8.5-10.1); CHLORIDE 105 mmol/L (98-107); CREATININE 1.14 mg/dL (0.7-1.3)
[2020-12-18 20:34] LABS: MICROSCOPIC INDICATED
--- NOTE | 2020-12-18 20:53 | NUR ---
PT AMBULATED BACK TO ROOM, GUARDING R ABD/FLANK D/T PAIN. STATES, "I THINK I HAVE A KIDNEY STONE." REPORTS HX OF FREQUENT KIDNEY STONES. ALL RESULTS BACK. RV'WD POC WITH PT. ERP TO SEE.
--- NOTE | 2020-12-18 20:58 | NUR ---
ERP AT BS.
[2020-12-18] MEDS ORDERED: ONDANSETRON 2MG/ML, 2ML IVPush ONE (21:00)
[2020-12-18] MEDS ORDERED: ONDANSETRON 2MG/ML, 2ML ONE (21:30)
[2020-12-18] MEDS ORDERED: MORPHINE SULFATE 4 MG/ML, 1ML ONE ×2 (21:31→22:19)
[2020-12-18] MEDS: MORPHINE SULFATE 4 MG/ML, 1ML IVPush PRN ×2 (21:38→22:20)
--- NOTE | 2020-12-18 21:40 | NUR ---
PT MEDICATED FOR PAIN PER ORDERS. CT RESULTS BACK. CHART UP FOR RECHECK. PT UNDERSTANDS POC. CALM, COOPERATIVE, DENIES ANY OTHER NEEDS AT THIS TIME. VSS.
--- NOTE | 2020-12-18 22:20 | NUR ---
PT REQUESTED ANOTHER DOSE OF MORPHINE, C/O R FLANK PAIN 01/28. INFORMED PT HE WILL NEED TO WAIT IN ED FOR 15-30MIN AFTER PAIN MEDS, HE VERBALIZES UNDERSTANDING. MEDICATED PER ORDERS.
[2020-12-18 23:04] VITALS: BP 153/112
--- NOTE | 2020-12-18 23:09 | NUR ---
PT STATES HE'S FEELING BETTER BUT STILL C/O SOME R FLANK PAIN. STATES HE FEELS OKAY TO GO HOME. D/C INSTRUCTIONS & F/U APPT RV'WD WITH PT, HE VERBALIZES UNDERSTANDING. INSTRUCTED TO RETURN TO ED FOR WORSENING SYMPTOMS. AMBULATED OUT OF ED WITHOUT DIFFICULTY, STATES HE LIVES [address] AND WILL WALK HOME.
== END 2020-12-18 23:05 | disposition home or self-care (01) ==
LOC: ED 21:30
DX: N13.1 Hydronephrosis with ureteral stricture, not elsewhere classified (principal); R10.31 Right lower quadrant pain; R11.0 Nausea; I10 Essential (primary) hypertension; F17.200 Nicotine dependence, unspecified, uncomplicated
CPT/HCPCS: 36415; 74176; 76770; 80048; 81001; 82040; 85025; 96374; 96375; 99285; J2270; J2405

== ENCOUNTER 2020-12-21 21:53 | Inpatient (IN) | payer MEDICAID ==
[~2020-12-21] VITALS: Ht 188 cm; Wt 100.6 kg
[2020-12-21 22:38] LABS: BASOPHILS % (AUTO) 1 % (0-1); EOSINOPHILS % (AUTO) 4 % (1-7); LYMPHOCYTES % (AUTO) 35 % (22-44); MEAN CORPUSCULAR HEMOGLOBIN 30.6 pg (27.5-34.5); MEAN CORPUSCULAR HGB CONC 33.6 g/dL (33.2-36.2); MEAN PLATELET VOLUME 8.5 fL (7.4-10.4); MONOCYTES % (AUTO) 12 % (2-9); NEUTROPHILS % (AUTO) 48 % (42-75); PLATELET COUNT 199 x10^3/uL (130-400); RED BLOOD COUNT 4.46 x10^6/uL (4.38-5.82); RED CELL DISTRIBUTION WIDTH 15.8 % (9.4-14.8)
[2020-12-21 22:39] LABS: MD NO
--- NOTE | 2020-12-21 22:49 | NUR ---
DR. HORTON AT BEDSIDE TO DISCUSS POC WITH PT. AWAITING NEURO CONSULT.
[2020-12-21 22:56] LABS: INTERNATIONAL NORMALIZED RATIO 0.99 (0.93-1.1); PROTHROMBIN TIME 10.6 Seconds (9.6-11.5)
[2020-12-21] MEDS ORDERED: OMNIPAQUE 350 MG/ML, 100ML BOTTLE ONE (22:57)
--- NOTE | 2020-12-21 22:59 | NUR ---
TELE NEURO CONSULT ACTIVE AT THIS TIME.
--- NOTE | 2020-12-21 23:11 | NUR ---
REPORT GIVEN TO KASSANDRA CHARLTON RN. PT TRANSFERRED TO ROOM 18.
--- NOTE | 2020-12-21 23:31 | NUR ---
FIRST CONTACT WITH PT. TO ASSUME CARE. PT. RESTING ON GURNEY WITH EYES CLOSED. PT. SLIGHTLY OPENS EYES TO VERBAL STIMULI BUT WON'T SPEAK TO THIS RN. ALL MONITORS IN PLACE. VSS. NSR NOTED ON MONITOR.
[2020-12-21 23:53] LABS: SALICYLATE LEVEL 2.3 mg/dL (2.8-20.0)
[2020-12-22] VITALS (8 sets, daily range): BP systolic 107–144; BP diastolic 72–96
[2020-12-22] MEDS ORDERED: ASPIRIN 325 MG TABLET PO STA (00:16)
[2020-12-22] MEDS ORDERED: POLYETHYLENE GLYCOL 17 GM PACKET PO PRN (01:00)
[2020-12-22] MEDS ORDERED: SENNA/DOCUSATE TABLET PO PRN (01:00)
[2020-12-22] MEDS ORDERED: BISACODYL 10 MG SUPP PR PRN (01:00)
[2020-12-22] MEDS ORDERED: ONDANSETRON 4 MG TABLET PO PRN (01:00)
[2020-12-22] MEDS ORDERED: ACETAMINOPHEN 650 MG/20.3 ML UDC PO PRN (01:00)
--- NOTE | 2020-12-22 01:12 | NUR ---
REPORT TO ANDRE JIMENEZ. FLOOR READY FOR PT. TRANSPORT.
[2020-12-22] MEDS ORDERED: QUET300T PO (01:29)
[2020-12-22] MEDS ORDERED: PRAZ2CAP2 PO (02:01)
[2020-12-22] MEDS ORDERED: NALT50TA PO (02:01)
[2020-12-22] MEDS ORDERED: FLUO20CA23 PO (02:01)
[2020-12-22] MEDS ORDERED: ALPR-585 PO (02:03)
[2020-12-22] MEDS ORDERED: ONDA4TAB13 PO (02:05)
[2020-12-22 06:18] LABS: BASOPHILS % (AUTO) 1 % (0-1); EOSINOPHILS % (AUTO) 4 % (1-7); LYMPHOCYTES % (AUTO) 37 % (22-44); MEAN CORPUSCULAR HEMOGLOBIN 30.4 pg (27.5-34.5); MEAN CORPUSCULAR HGB CONC 33.4 g/dL (33.2-36.2); MEAN PLATELET VOLUME 8.4 fL (7.4-10.4); MONOCYTES % (AUTO) 13 % (2-9); NEUTROPHILS % (AUTO) 45 % (42-75); PLATELET COUNT 193 x10^3/uL (130-400); RED CELL DISTRIBUTION WIDTH 16.2 % (9.4-14.8)
[2020-12-22 06:21] LABS: MD NO
[2020-12-22 06:29] LABS: ALBUMIN 3.5 g/dL (3.4-5.0); ANION GAP 5 mmol/L (5-15); CALCIUM 8.6 mg/dL (8.5-10.1); CHLORIDE 108 mmol/L (98-107)
[2020-12-22 06:33] LABS: ALANINE AMINOTRANSFERASE 33 U/L (12-78); ALKALINE PHOSPHATASE 91 U/L (45-117); BILIRUBIN,TOTAL 0.3 mg/dL (0.2-1.0); CREATININE 0.99 mg/dL (0.7-1.3); TOTAL PROTEIN 6.5 g/dL (6.4-8.2)
[2020-12-22 09:04] LABS: MICROSCOPIC NOT IND
[2020-12-22] MEDS: ASPIRIN 81 MG TABLET CHEW PO/NG SCH (09:05)
[2020-12-22 09:17] LABS: AMPHETAMINE SCREEN, URINE Positive (Negative); BARBITURATE SCREEN, URINE Negative (Negative); BENZODIAZEPINE SCREEN, URINE Positive (Negative); CANNABINOID SCREEN, URINE Negative (Negative); OPIATE SCREEN, URINE Negative (Negative)
[2020-12-22 09:19] LABS: COCAINE SCREEN, URINE Negative (Negative); METHADONE SCREEN, URINE Negative (Negative)
[2020-12-22 09:25] LABS: HCT (SEDRATE) 43.8 % (39.2-51.8)
[2020-12-22] MEDS ORDERED: NICOTINE 21 MG/24 HR PATCH.TD24 ONE (14:43)
[2020-12-22] MEDS: NICOTINE 21 MG/24 HR PATCH.TD24 TD SCH ×2 (14:45→17:46)
[2020-12-22] MEDS ORDERED: ATORVASTATIN 40 MG TABLET PO SCH (21:00)
[2020-12-23 01:09] VITALS: BP 132/89
[2020-12-23 04:55] LABS: CHOL/HDL RATIO 6.3; LDL/HDL RATIO 4.6 (0.5-3.0)
[2020-12-23 07:14] VITALS: BP 131/86
[2020-12-23] MEDS: ASPIRIN 81 MG TABLET CHEW PO/NG SCH (08:02)
[2020-12-23] MEDS ORDERED: NICOTINE 21 MG/24 HR PATCH.TD24 TD SCH (09:00)
[2020-12-23] MEDS ORDERED: BENZTROPINE 1 MG TABLET PO SCH (09:30)
[2020-12-23] MEDS ORDERED: QUETIAPINE FUMARATE PO SCH (09:30)
[2020-12-23] MEDS ORDERED: PROPRANOLOL 10 MG TABLET PO PRN (09:30)
[2020-12-23] MEDS ORDERED: GABAPENTIN 300 MG CAPSULE PO SCH (09:30)
[2020-12-23] MEDS ORDERED: ALPRazolam 1MG TAB PO PRN (09:30)
[2020-12-23] MEDS ORDERED: HALOPERIDOL 5 MG TABLET PO SCH (09:30)
[2020-12-23] MEDS ORDERED: ONDANSETRON ODT 4 MG PO PRN (09:30)
[2020-12-23] MEDS ORDERED: QUETIAPINE 100MG TABLET PO SCH (12:25)
[2020-12-23] MEDS ORDERED: ATOR40TA78 PO (12:34)
[2020-12-23] MEDS ORDERED: ASPI-963 PO/NG (12:34)
[2020-12-23 13:43] VITALS: BP 127/76
[2020-12-23] MEDS ORDERED: NALTREXONE HCL 50 MG TABLET PO SCH (21:00)
[2020-12-23] MEDS ORDERED: PRAZOSIN 2 MG CAPSULE PO SCH (21:00)
== END 2020-12-23 14:54 | disposition home or self-care (01) | DRG 59 ==
LOC: ED 22:24 → EDIP 12-22 00:24 → 4WST 12-22 00:49
PROVIDERS: ADMIT Internal Medicine; ATTEND Internal Medicine
DX: G35 Multiple sclerosis (principal); Q61.3 Polycystic kidney, unspecified; F17.200 Nicotine dependence, unspecified, uncomplicated; G81.94 Hemiplegia, unspecified affecting left nondominant side; Z88.8 Allergy status to other drugs, medicaments and biological substances; F25.9 Schizoaffective disorder, unspecified; F43.10 Post-traumatic stress disorder, unspecified; I10 Essential (primary) hypertension; Z86.73 Personal history of transient ischemic attack (TIA), and cerebral infarction without residual deficits
CPT/HCPCS: 36415; 70450; 70496; 70498; 70551; 80047; 80053; 80061; 80299; 80307; 80320; 80329; 81003; 82607; 84443; 85025; 85610; 85651; 85730; 93005; 99291; G0378; Q9967; G0480

== ENCOUNTER 2020-12-24 06:35 | Inpatient (IN) | payer MEDICAID ==
[~2020-12-24] VITALS: Ht 188 cm; Wt 98.0 kg
[~2020-12-24 06:35] MED LIST changes: +ALPR-585 PO; +ASPI-963 PO/NG; +ATOR40TA78 PO; +FLUO20CA23 PO; +NALT50TA PO; +ONDA4TAB13 PO; +PRAZ2CAP2 PO; +QUET300T PO
--- NOTE | 2020-12-24 06:49 | NUR ---
PT HYACINTH FROM HOME FOR NEAR SYNCOPE. STATES HE WAS WALKING DOWN THE STAIRS WHEN HE FELT LIGHT HEADED, ASSISTED TO GROUND BY FRIENDS. PT WAS D/C YESTERDAY FROM THIS FACILITY FOR DX OF TIA ON MONDAY, RESIDUAL L SIDED WEAKNESS. PT ALSO C/O BLURRY VISION X THIS AM, ALSO ABD PAIN (LUQ PAIN, RAD TO BACK) X2DAYS +N/D, WITH DECREASED URINE OUTPUT. PT STATES C DX OF TIA HE WAS TOLD THERE ARE LESIONS ON HIS BRAIN THAT MY BE MS, CAUSING HIM TO HAVE INCREASED ANXIETY.
--- NOTE | 2020-12-24 07:05 | NUR ---
assumed care of pt. report from Tamra POWELL. pt here for fall/syncope at home this AM. per pt, he was just D/C from inpatient stay for evaluation of TIA. pt is very drowsy during exam. no resp. distress. pt reports pain to L knee form fall and states that he has been having intermittent RUQ pain. pt states that he was having diarrhea yesterday but none today. denies head injury. no neck pain. pt oriented x4. calm and cooperative. restin in position of comfort. no family at [facility] at bedside for eval
--- NOTE | 2020-12-24 07:52 | NUR ---
lab at bedside to draw US at bedside pt awar ethat urine sample needed. urinal at bedside
[2020-12-24 08:03] LABS: BASOPHILS % (AUTO) 1 % (0-1); EOSINOPHILS % (AUTO) 4 % (1-7); LYMPHOCYTES % (AUTO) 22 % (22-44); MEAN CORPUSCULAR HEMOGLOBIN 30.4 pg (27.5-34.5); MEAN CORPUSCULAR HGB CONC 33.3 g/dL (33.2-36.2); MEAN PLATELET VOLUME 8.3 fL (7.4-10.4); MONOCYTES % (AUTO) 13 % (2-9); NEUTROPHILS % (AUTO) 61 % (42-75); PLATELET COUNT 206 x10^3/uL (130-400); RED CELL DISTRIBUTION WIDTH 15.8 % (9.4-14.8)
[2020-12-24 08:05] LABS: MD NO
[2020-12-24 08:16] LABS: ALBUMIN 3.8 g/dL (3.4-5.0); ANION GAP 4 mmol/L (5-15); CALCIUM 9.4 mg/dL (8.5-10.1); CHLORIDE 110 mmol/L (98-107)
[2020-12-24 08:19] LABS: ALANINE AMINOTRANSFERASE 25 U/L (12-78); ALKALINE PHOSPHATASE 88 U/L (45-117); BILIRUBIN,TOTAL 0.3 mg/dL (0.2-1.0); CREATININE 1.05 mg/dL (0.7-1.3)
--- NOTE | 2020-12-24 08:50 | NUR ---
pt sleeping in position of comfort. easily arousable. pt reminded that urine sample needed pt given new urinal
--- NOTE | 2020-12-24 09:20 | NUR ---
pt continues sleeping in position of comfort. easily arousable urine sample collected and sent. no family at bedside
--- NOTE | 2020-12-24 09:50 | NUR ---
pt continues sleeping. awaiting test results
[2020-12-24 09:52] LABS: MICROSCOPIC NOT IND
[2020-12-24 10:01] LABS: AMPHETAMINE SCREEN, URINE Positive (Negative); BARBITURATE SCREEN, URINE Negative (Negative); BENZODIAZEPINE SCREEN, URINE Positive (Negative); CANNABINOID SCREEN, URINE Negative (Negative); COCAINE SCREEN, URINE Negative (Negative); METHADONE SCREEN, URINE Negative (Negative); OPIATE SCREEN, URINE Negative (Negative)
--- NOTE | 2020-12-24 10:10 | NUR ---
pt resting in position of comfort. no new c/o. no apparent distress. no family at bedside chart up for MD recheck
--- NOTE | 2020-12-24 11:00 | NUR ---
pt to be admitted. pt updated on POC awaiting admit MD. pt requesting food, pt advised to remain NPO pending hospitalist evaluation
--- NOTE | 2020-12-24 12:00 | NUR ---
pt resting on gurney in position of comfort. lights dimmed. no apparent distress. no new c/o awaiting hospitalist to bedside to eval for admission
--- NOTE | 2020-12-24 12:41 | NUR ---
TASK RN: PT SLEEPING ON GURNEY. RESP EVEN AND UNLABORED. PT CONNECTED TO MONITORING. REPORT TO PRIMARY RN.
--- NOTE | 2020-12-24 13:22 | NUR ---
awaiting admission. pt sleeping intermittently report to Curry POWELL
--- NOTE | 2020-12-24 13:55 | NUR ---
REVIEW OF CHART, ATTEMPT TO CALL REPORT TO FLOOR.
[2020-12-24] MEDS ORDERED: PROPRANOLOL 20 MG TABLET PO PRN (14:00)
[2020-12-24] MEDS ORDERED: LORazepam 1MG TABLET PO PRN (14:00)
[2020-12-24] MEDS ORDERED: ACETAMINOPHEN 650 MG/20.3 ML UDC PO PRN (14:00)
[2020-12-24 14:38] VITALS: BP 145/98
[2020-12-24 14:41] VITALS: BP_SYST 109; BP_SYST 122; BP_DIAS 77; BP_DIAS 87
[2020-12-24] MEDS ORDERED: ONDANSETRON 4 MG TABLET PO PRN (15:30)
[2020-12-24] MEDS ORDERED: ONDANSETRON 2MG/ML, 2ML IVPush PRN (15:30)
[2020-12-24] MEDS ORDERED: NICOTINE 14MG/24 HR PATCH.TD24 TD SCH (15:30)
[2020-12-24] MEDS: GABAPENTIN 300 MG CAPSULE PO SCH ×2 (16:30→21:41)
[2020-12-24] MEDS: ACETAMINOPHEN 325 MG TABLET PO PRN ×2 (16:31→22:01)
[2020-12-24 19:37] VITALS: BP_SYST 115; BP_SYST 93; BP_DIAS 66; BP_DIAS 75
[2020-12-24 19:38] VITALS: BP 90/60
[2020-12-24] MEDS ORDERED: QUETIAPINE 100MG TABLET PO SCH (21:00)
[2020-12-24] MEDS ORDERED: PRAZOSIN 2 MG CAPSULE PO SCH (21:00)
[2020-12-24] MEDS ORDERED: ATORVASTATIN 40 MG TABLET PO SCH (21:00)
[2020-12-24 21:42] VITALS: BP 118/85
[2020-12-25] VITALS (8 sets, daily range): BP systolic 106–129; BP diastolic 62–78
[2020-12-25 05:07] LABS: CHOL/HDL RATIO 6.9
[2020-12-25] MEDS ORDERED: FLUOXETINE HCL 20 MG CAPSULE PO SCH (09:00)
[2020-12-25] MEDS ORDERED: ASPIRIN 81 MG TABLET EC PO SCH (09:00)
[2020-12-25] MEDS ORDERED: ASPIRIN 81 MG TABLET CHEW PO/NG SCH (09:00)
[2020-12-25] MEDS: GABAPENTIN 300 MG CAPSULE PO SCH (09:24)
== END 2020-12-25 16:14 | disposition home or self-care (01) | DRG 312 ==
LOC: ED 06:41 → 4WST 11:10 → UNDOADMIN 13:45 → 4WST 13:45 → DCLOUNGE 12-25 16:02
PROVIDERS: ADMIT Internal Medicine; ATTEND Internal Medicine
DX: I95.2 Hypotension due to drugs (principal); N13.30 Unspecified hydronephrosis; T50.995A Adverse effect of other drugs, medicaments and biological substances, initial encounter; F10.21 Alcohol dependence, in remission; F25.9 Schizoaffective disorder, unspecified; F41.1 Generalized anxiety disorder; F43.10 Post-traumatic stress disorder, unspecified; G89.29 Other chronic pain; I10 Essential (primary) hypertension; W18.39XA Other fall on same level, initial encounter; S80.02XA Contusion of left knee, initial encounter; Z72.0 Tobacco use; Z86.73 Personal history of transient ischemic attack (TIA), and cerebral infarction without residual deficits; Z87.11 Personal history of peptic ulcer disease; Z87.442 Personal history of urinary calculi; Y92.89 Other specified places as the place of occurrence of the external cause; Y93.89 Activity, other specified; Y99.8 Other external cause status
CPT/HCPCS: 36415; 76700; 80053; 80061; 80307; 81003; 83690; 85025; 93005; 93306; 95819; 99285; G0378; J2405; 92523-GN

== ENCOUNTER 2021-01-05 15:10 | Emergency (ER) | payer MEDICAID ==
[~2021-01-05] VITALS: Ht 188 cm; Wt 97.5 kg
[2021-01-05 15:12] VITALS: BP 112/78
--- NOTE | 2021-01-05 15:12 | NUR ---
TRIAGE FROM [facility]: HEADACHE BEHIND LEFT EYE SINCE 0900 THIS MORNING, HX MIGRAINES
--- NOTE | 2021-01-05 15:16 | NUR ---
IN TRIAGE: PATIENT ADDED CC OF CHEST PAIN THAT BEGAN ONE HOUR AGO, THIS WAS NOT REPORTED TO [facility] IN ROUTE. STATES RADIATES TO LEFT SHOULDER. 3 OF 10. FACE SYMETRICAL. SPEECH CLEAR. EKG IN TRIAGE.
--- NOTE | 2021-01-05 16:47 | NUR ---
CALLED PATIENT X1 NOT IN LOBBY AT THIS TIME. WILL REASSESS
--- NOTE | 2021-01-05 16:56 | NUR ---
CALLED IN LOBBY SECOND TIME. PATIENT NOT IN LOBBY
--- NOTE | 2021-01-05 17:03 | NUR ---
CALLED FOR PATIENT AGAIN IN LOBBY AND PATIENT IS STILL NOWHERE TO BE FOUND.
== END 2021-01-05 17:05 | disposition left against medical advice (07) ==
LOC: ED 17:00
DX: R42 Dizziness and giddiness (principal); R94.31 Abnormal electrocardiogram [ECG] [EKG]; Z53.21 Procedure and treatment not carried out due to patient leaving prior to being seen by health care provider
CPT/HCPCS: 93005; 99283

== ENCOUNTER 2021-01-11 16:02 | Emergency (ER) | payer MEDICAID ==
[~2021-01-11] VITALS: Ht 188 cm; Wt 97.5 kg
--- NOTE | 2021-01-11 20:17 | NUR ---
POWDERED METAL SUPERVISOR: PT. TO ROOM FROM LOBBY AT THIS TIME.
--- NOTE | 2021-01-11 20:18 | NUR ---
ASSESSMENT MADE. CHART UP FOR ERP TO SEE.
[2021-01-11] MEDS ORDERED: METOCLOPRAMIDE 5 MG/ML, 2ML IVPush ONE (20:30)
[2021-01-11] MEDS ORDERED: DIPHENHYDRAMINE 50 MG/ML, 1ML IVPush ONE (20:30)
[2021-01-11] MEDS ORDERED: METOCLOPRAMIDE 5 MG/ML, 2ML ONE (20:58)
[2021-01-11] MEDS ORDERED: DIPHENHYDRAMINE 50 MG/ML, 1ML ONE (20:58)
[2021-01-11] MEDS ORDERED: PROCHLORPERAZINE 5 MG/ML, 2ML ONE (21:52)
--- NOTE | 2021-01-11 21:56 | NUR ---
PATIENT RE-MEDICATED FOR HEADACHE.
[2021-01-11] MEDS ORDERED: PROCHLORPERAZINE 5 MG/ML, 2ML IVPush ONE (22:00)
--- NOTE | 2021-01-11 22:36 | NUR ---
PATIENT SLEEPING. NO COMPLAINTS AT THIS TIME.
--- NOTE | 2021-01-11 23:11 | NUR ---
PATIENT STATES HIS HEADACHE IS BETTER. AWAITING MD TO RE-EVAL.
--- NOTE | 2021-01-11 23:32 | NUR ---
ERP AT BEDSIDE FOR RE-EVALUATION.
--- NOTE | 2021-01-11 23:42 | NUR ---
PATIENT DISCHARGED WITH INSTRUCTION. VERBALIZED UNDERSTANDING.
[2021-01-11 23:43] VITALS: BP 131/78
== END 2021-01-11 23:45 | disposition home or self-care (01) ==
LOC: ED 17:16
DX: G43.909 Migraine, unspecified, not intractable, without status migrainosus (principal); I10 Essential (primary) hypertension; F17.200 Nicotine dependence, unspecified, uncomplicated; Q61.3 Polycystic kidney, unspecified
CPT/HCPCS: 93005; 96374; 96375; 99285; J0780; J1200; J2765

== ENCOUNTER 2021-01-17 10:39 | Emergency (ER) | payer MEDICAID ==
[~2021-01-17] VITALS: Ht 190.5 cm; Wt 110.0 kg
--- NOTE | 2021-01-17 10:45 | NUR ---
web design instructor completed. Pt changed into gown, VS taken, triage completed, warm blankets provided, medical receptionist assistant socks applied, and call light in reach.
[2021-01-17 10:51] VITALS: BP 139/87
--- NOTE | 2021-01-17 11:06 | NUR ---
at bedside for exam.
[2021-01-17] MEDS ORDERED: ACETAMINOPHEN 325 MG TABLET PO ONE (11:30)
[2021-01-17] MEDS ORDERED: ACETAMINOPHEN 325 MG TABLET ONE (11:37)
--- NOTE | 2021-01-17 11:43 | NUR ---
APAP given PO for pain at this time. Pt provided clean catch supplies for UA sample and is attempting a sample now.
[2021-01-17 11:50] LABS: BASOPHILS % (AUTO) 0 % (0-1); EOSINOPHILS % (AUTO) 1 % (1-7); LYMPHOCYTES % (AUTO) 7 % (22-44); MEAN CORPUSCULAR HEMOGLOBIN 30.8 pg (27.5-34.5); MEAN CORPUSCULAR HGB CONC 33.4 g/dL (33.2-36.2); MEAN PLATELET VOLUME 8.6 fL (7.4-10.4); MONOCYTES % (AUTO) 9 % (2-9); NEUTROPHILS % (AUTO) 83 % (42-75); PLATELET COUNT 176 x10^3/uL (130-400); RED BLOOD COUNT 4.63 x10^6/uL (4.38-5.82); RED CELL DISTRIBUTION WIDTH 14.9 % (9.4-14.8)
--- NOTE | 2021-01-17 11:50 | NUR ---
battery service technician at bedside for 12 lead EKG.
[2021-01-17 11:58] LABS: ALANINE AMINOTRANSFERASE 25 U/L (12-78); ALBUMIN 3.8 g/dL (3.4-5.0); ANION GAP 3 mmol/L (5-15); CALCIUM 8.8 mg/dL (8.5-10.1); CHLORIDE 107 mmol/L (98-107); CREATININE 1.12 mg/dL (0.7-1.3)
[2021-01-17 12:03] LABS: ALKALINE PHOSPHATASE 87 U/L (45-117); BILIRUBIN,TOTAL 0.3 mg/dL (0.2-1.0); TOTAL PROTEIN 6.9 g/dL (6.4-8.2)
--- NOTE | 2021-01-17 12:09 | NUR ---
300ML clear yellow uop obtained and emptied after UA sample sent to lab. Urinal back to within pt reach for future use. ED diet tray requested and ordered at this time and awaiting arrival to bring in for pt.
[2021-01-17 12:16] LABS: MICROSCOPIC NOT IND
[2021-01-17 12:17] LABS: MD SCAN
--- NOTE | 2021-01-17 12:40 | NUR ---
DRILL PRESSER for psych evaluation at bedside at this time.
--- NOTE | 2021-01-17 13:02 | NUR ---
SW request for RN to call [facility] to arrange ride back to facility on [facility]. for pt. Currently on hold while attempting to find this information. Renal US completed, UA results reviewed, and awaiting MD recheck with pt.
--- NOTE | 2021-01-17 13:07 | NUR ---
Lunch tray brought to pt at this time.
== END 2021-01-17 14:03 | disposition home or self-care (01) ==
LOC: ED 11:09
DX: F25.9 Schizoaffective disorder, unspecified (principal); G43.909 Migraine, unspecified, not intractable, without status migrainosus; I10 Essential (primary) hypertension; F17.200 Nicotine dependence, unspecified, uncomplicated; Q61.3 Polycystic kidney, unspecified; F32.9 Major depressive disorder, single episode, unspecified
CPT/HCPCS: 36415; 76770; 80053; 81003; 85025; 93005; 99285

== ENCOUNTER 2021-02-06 18:43 | Inpatient (IN) | payer MEDICAID ==
[~2021-02-06] VITALS: Ht 188 cm; Wt 94.1 kg
[~2021-02-06 18:43] MED LIST changes: +MIRT-14 PO; -MIRT-34 PO; -QUET300T PO; +QUET300T2 PO
[2021-02-06] MEDS ORDERED: BISACODYL 10 MG SUPP PR PRN (20:30)
[2021-02-06] MEDS ORDERED: NICOTINE 21 MG/24 HR PATCH.TD24 TD ONE (20:30)
[2021-02-06] MEDS ORDERED: POLYETHYLENE GLYCOL 17 GM PACKET PO PRN (20:30)
[2021-02-06 20:56] VITALS: BP 113/78
[2021-02-06] MEDS: HALOPERIDOL 1 MG TABLET PO SCH (21:00)
[2021-02-06] MEDS ORDERED: PLEASE ENTER HEIGHT AND WEIGHT MC SCH (21:00)
[2021-02-06] MEDS: PRAZOSIN 2 MG CAPSULE PO SCH (22:42)
[2021-02-06] MEDS: QUETIAPINE 100MG TABLET PO SCH (22:42)
[2021-02-06] MEDS: ALPRazolam 1MG TAB PO SCH (22:42)
[2021-02-06] MEDS: ATORVASTATIN 20 MG TABLET PO SCH (22:43)
[2021-02-06] MEDS: BENZTROPINE 1 MG TABLET PO SCH (22:44)
[2021-02-06 23:32] VITALS: BP 113/78
[2021-02-07 07:27] VITALS: BP 101/70
[2021-02-07 08:01] LABS: CHOL/HDL RATIO 6.5; FREE T4 (FREE THYROXINE) 1.13 ng/dL (0.76-1.46); LDL/HDL RATIO 4.8 (0.5-3.0)
[2021-02-07] MEDS: ALPRazolam 1MG TAB PO SCH ×3 (08:59→20:16)
[2021-02-07] MEDS: BENZTROPINE 1 MG TABLET PO SCH ×2 (08:59→20:16)
[2021-02-07] MEDS: FLUOXETINE HCL 20 MG CAPSULE PO SCH (08:59)
[2021-02-07] MEDS: HALOPERIDOL 1 MG TABLET PO SCH ×3 (08:59→20:16)
[2021-02-07 19:17] VITALS: BP 109/70
[2021-02-07] MEDS: PRAZOSIN 2 MG CAPSULE PO SCH (20:16)
[2021-02-07] MEDS: QUETIAPINE 100MG TABLET PO SCH (20:16)
[2021-02-07] MEDS: ATORVASTATIN 20 MG TABLET PO SCH (20:16)
[2021-02-08] MEDS: ASPIRIN 81 MG TABLET EC PO SCH (06:09)
[2021-02-08 07:37] VITALS: BP 97/65
[2021-02-08] MEDS: NICOTINE 21 MG/24 HR PATCH.TD24 TD SCH (08:53)
[2021-02-08] MEDS: ALPRazolam 1MG TAB PO SCH ×3 (08:53→19:46)
[2021-02-08] MEDS: HALOPERIDOL 1 MG TABLET PO SCH ×2 (08:53→16:38)
[2021-02-08] MEDS: BENZTROPINE 1 MG TABLET PO SCH ×2 (08:53→19:46)
[2021-02-08] MEDS: FLUOXETINE HCL 20 MG CAPSULE PO SCH (08:54)
[2021-02-08] MEDS ORDERED: METHYLPHENIDATE 10 MG TABLET ONE (13:26)
[2021-02-08] MEDS: METHYLPHENIDATE 10 MG TABLET PO SCH (13:36)
[2021-02-08 19:22] VITALS: BP 104/70
[2021-02-08] MEDS: TRAZODONE 50MG TABLET PO PRN ×2 (19:46→21:00)
[2021-02-08] MEDS: PRAZOSIN 2 MG CAPSULE PO SCH (19:46)
[2021-02-08] MEDS: HALOPERIDOL 5 MG TABLET PO SCH (19:46)
[2021-02-08] MEDS: ATORVASTATIN 20 MG TABLET PO SCH (19:46)
[2021-02-08] MEDS: QUETIAPINE 100MG TABLET PO SCH (19:46)
[2021-02-09] MEDS: ASPIRIN 81 MG TABLET EC PO SCH (05:52)
[2021-02-09 07:18] VITALS: BP 112/78
[2021-02-09] MEDS: BENZTROPINE 1 MG TABLET PO SCH ×2 (07:59→20:38)
[2021-02-09] MEDS: ALPRazolam 1MG TAB PO SCH ×3 (07:59→18:32)
[2021-02-09] MEDS: NICOTINE 21 MG/24 HR PATCH.TD24 TD SCH (07:59)
[2021-02-09] MEDS: FLUOXETINE HCL 20 MG CAPSULE PO SCH (07:59)
[2021-02-09] MEDS: METHYLPHENIDATE 10 MG TABLET PO SCH ×2 (08:00→11:38)
[2021-02-09] MEDS: HALOPERIDOL 5 MG TABLET PO SCH ×3 (08:00→20:38)
[2021-02-09 19:40] VITALS: BP 123/92
[2021-02-09] MEDS: ATORVASTATIN 20 MG TABLET PO SCH (20:38)
[2021-02-09] MEDS: TRAZODONE 50MG TABLET PO PRN ×2 (20:38→22:14)
[2021-02-09] MEDS: QUETIAPINE 100MG TABLET PO SCH (20:38)
[2021-02-09] MEDS: PRAZOSIN 2 MG CAPSULE PO SCH (20:38)
[2021-02-09] MEDS: ONDANSETRON 4 MG TABLET PO PRN (22:39)
[2021-02-09] MEDS: ACETAMINOPHEN 325 MG TABLET PO PRN (22:39)
[2021-02-10 00:43] VITALS: BP 122/83
[2021-02-10] MEDS: ASPIRIN 81 MG TABLET EC PO SCH (05:02)
[2021-02-10] MEDS: ONDANSETRON 4 MG TABLET PO PRN ×2 (05:04→18:12)
[2021-02-10 07:48] VITALS: BP 107/74
[2021-02-10] MEDS: ALPRazolam 1MG TAB PO SCH ×3 (08:24→20:28)
[2021-02-10] MEDS: METHYLPHENIDATE 10 MG TABLET PO SCH ×2 (08:24→12:11)
[2021-02-10] MEDS: FLUOXETINE HCL 20 MG CAPSULE PO SCH (08:24)
[2021-02-10] MEDS: HALOPERIDOL 5 MG TABLET PO SCH ×3 (08:25→20:28)
[2021-02-10] MEDS: BENZTROPINE 1 MG TABLET PO SCH ×2 (08:25→20:28)
[2021-02-10] MEDS: NICOTINE 21 MG/24 HR PATCH.TD24 TD SCH (08:27)
[2021-02-10] MEDS: ACETAMINOPHEN 325 MG TABLET PO PRN (10:12)
--- NOTE | 2021-02-10 11:03 | NUR ---
YANELIS GUAJARDO - Fall Risk Medications present and NOT receiving anticoagulants.
[2021-02-10 19:31] VITALS: BP 105/70
[2021-02-10] MEDS: PRAZOSIN 2 MG CAPSULE PO SCH (20:28)
[2021-02-10] MEDS: QUETIAPINE 100MG TABLET PO SCH (20:28)
[2021-02-10] MEDS: ATORVASTATIN 20 MG TABLET PO SCH (20:29)
[2021-02-11] MEDS: ASPIRIN 81 MG TABLET EC PO SCH (05:54)
[2021-02-11 07:28] VITALS: BP 106/68
[2021-02-11] MEDS: FLUOXETINE HCL 20 MG CAPSULE PO SCH (08:09)
[2021-02-11] MEDS: METHYLPHENIDATE 10 MG TABLET PO SCH ×2 (08:09→12:11)
[2021-02-11] MEDS: NICOTINE 21 MG/24 HR PATCH.TD24 TD SCH (08:09)
[2021-02-11] MEDS: BENZTROPINE 1 MG TABLET PO SCH ×2 (08:10→20:08)
[2021-02-11] MEDS: ALPRazolam 1MG TAB PO SCH ×3 (08:10→20:08)
[2021-02-11] MEDS: HALOPERIDOL 5 MG TABLET PO SCH ×3 (08:10→20:08)
[2021-02-11 19:48] VITALS: BP 108/76
[2021-02-11] MEDS: ATORVASTATIN 20 MG TABLET PO SCH (20:07)
[2021-02-11] MEDS: PRAZOSIN 2 MG CAPSULE PO SCH (20:08)
[2021-02-11] MEDS: QUETIAPINE 100MG TABLET PO SCH (20:08)
[2021-02-11] MEDS: ACETAMINOPHEN 325 MG TABLET PO PRN (20:49)
[2021-02-12] MEDS: ASPIRIN 81 MG TABLET EC PO SCH (06:12)
[2021-02-12 07:16] VITALS: BP 100/65
[2021-02-12] MEDS: FLUOXETINE HCL 20 MG CAPSULE PO SCH (08:44)
[2021-02-12] MEDS: HALOPERIDOL 5 MG TABLET PO SCH ×3 (08:44→21:05)
[2021-02-12] MEDS: NICOTINE 21 MG/24 HR PATCH.TD24 TD SCH (08:44)
[2021-02-12] MEDS: METHYLPHENIDATE 10 MG TABLET PO SCH ×2 (08:44→12:18)
[2021-02-12] MEDS: ALPRazolam 1MG TAB PO SCH ×3 (08:44→21:05)
[2021-02-12] MEDS: BENZTROPINE 1 MG TABLET PO SCH ×2 (08:44→21:05)
[2021-02-12] MEDS: CALCIUM CARBONATE 500 MG TAB.CHEW PO PRN (16:30)
[2021-02-12 19:22] VITALS: BP 116/75
[2021-02-12] MEDS: ATORVASTATIN 20 MG TABLET PO SCH (21:05)
[2021-02-12] MEDS: PRAZOSIN 2 MG CAPSULE PO SCH (21:05)
[2021-02-12] MEDS: QUETIAPINE 100MG TABLET PO SCH (21:05)
[2021-02-12] MEDS: DOCUSATE 100 MG CAPSULE PO PRN (21:05)
[2021-02-12] MEDS: ZOLPIDEM 10MG TABLET PO PRN (21:12)
[2021-02-13] MEDS: ASPIRIN 81 MG TABLET EC PO SCH (05:27)
[2021-02-13 07:11] VITALS: BP 119/84
[2021-02-13] MEDS: NICOTINE 21 MG/24 HR PATCH.TD24 TD SCH (08:55)
[2021-02-13] MEDS: BENZTROPINE 1 MG TABLET PO SCH ×2 (08:55→20:22)
[2021-02-13] MEDS: FLUOXETINE HCL 20 MG CAPSULE PO SCH (08:55)
[2021-02-13] MEDS: ALPRazolam 1MG TAB PO SCH ×3 (08:55→20:22)
[2021-02-13] MEDS: METHYLPHENIDATE 10 MG TABLET PO SCH ×2 (08:55→12:40)
[2021-02-13] MEDS: HALOPERIDOL 5 MG TABLET PO SCH ×3 (08:55→20:22)
[2021-02-13] MEDS: DOCUSATE 100 MG CAPSULE PO PRN ×2 (11:25→20:23)
[2021-02-13] MEDS: CALCIUM CARBONATE 500 MG TAB.CHEW PO PRN (11:25)
[2021-02-13] MEDS ORDERED: HALOPERIDOL 5 MG TABLET PO ONE (19:00)
[2021-02-13 19:34] VITALS: BP 110/78
[2021-02-13] MEDS: ZOLPIDEM 10MG TABLET PO PRN (20:22)
[2021-02-13] MEDS: ATORVASTATIN 20 MG TABLET PO SCH (20:22)
[2021-02-13] MEDS: PRAZOSIN 2 MG CAPSULE PO SCH (20:22)
[2021-02-13] MEDS: QUETIAPINE 100MG TABLET PO SCH (20:23)
[2021-02-14] MEDS: ASPIRIN 81 MG TABLET EC PO SCH (05:57)
[2021-02-14 07:35] VITALS: BP 98/76
[2021-02-14] MEDS: BENZTROPINE 1 MG TABLET PO SCH ×2 (08:19→21:05)
[2021-02-14] MEDS: HALOPERIDOL 5 MG TABLET PO SCH ×3 (08:20→21:03)
[2021-02-14] MEDS: METHYLPHENIDATE 10 MG TABLET PO SCH ×2 (08:20→13:16)
[2021-02-14] MEDS: FLUOXETINE HCL 20 MG CAPSULE PO SCH (08:21)
[2021-02-14] MEDS: ALPRazolam 1MG TAB PO SCH (08:21)
[2021-02-14] MEDS: NICOTINE 21 MG/24 HR PATCH.TD24 TD SCH (08:22)
[2021-02-14] MEDS ORDERED: METHYLPHENIDATE 5 MG TABLET ONE (13:11)
[2021-02-14] MEDS: CALCIUM CARBONATE 500 MG TAB.CHEW PO PRN (15:19)
[2021-02-14] MEDS: ACETAMINOPHEN 325 MG TABLET PO PRN (15:19)
[2021-02-14] MEDS: DOCUSATE 100 MG CAPSULE PO PRN (15:19)
[2021-02-14] MEDS: LORazepam 1MG TABLET PO PRN (17:55)
[2021-02-14 19:32] VITALS: BP 119/76
[2021-02-14] MEDS: PRAZOSIN 2 MG CAPSULE PO SCH (21:03)
[2021-02-14] MEDS: ZOLPIDEM 10MG TABLET PO PRN (21:04)
[2021-02-14] MEDS: ATORVASTATIN 20 MG TABLET PO SCH (21:05)
[2021-02-14] MEDS: QUETIAPINE 100MG TABLET PO SCH (21:05)
[2021-02-15] MEDS: ASPIRIN 81 MG TABLET EC PO SCH (05:59)
[2021-02-15 07:33] VITALS: BP 105/73
[2021-02-15] MEDS: HALOPERIDOL 5 MG TABLET PO SCH ×3 (07:56→20:03)
[2021-02-15] MEDS: BENZTROPINE 1 MG TABLET PO SCH ×2 (07:57→20:02)
[2021-02-15] MEDS: METHYLPHENIDATE 10 MG TABLET PO SCH ×2 (07:57→11:32)
[2021-02-15] MEDS: NICOTINE 21 MG/24 HR PATCH.TD24 TD SCH (07:57)
[2021-02-15] MEDS: FLUOXETINE HCL 20 MG CAPSULE PO SCH (07:57)
[2021-02-15] MEDS ORDERED: QUET100T2 PO (13:04)
[2021-02-15] MEDS ORDERED: HALO5TAB5 PO (13:04)
[2021-02-15] MEDS ORDERED: FLUO20CA23 PO (13:04)
[2021-02-15] MEDS ORDERED: NICO-587 TD (13:04)
[2021-02-15] MEDS: LORazepam 1MG TABLET PO PRN (15:52)
[2021-02-15 19:43] VITALS: BP 115/81
[2021-02-15] MEDS: PRAZOSIN 2 MG CAPSULE PO SCH (20:03)
[2021-02-15] MEDS: ATORVASTATIN 20 MG TABLET PO SCH (20:03)
[2021-02-15] MEDS: QUETIAPINE 100MG TABLET PO SCH (20:03)
[2021-02-15] MEDS: ZOLPIDEM 10MG TABLET PO PRN (20:07)
[2021-02-16] MEDS: ASPIRIN 81 MG TABLET EC PO SCH (05:43)
[2021-02-16 07:15] VITALS: BP 108/71
[2021-02-16] MEDS: METHYLPHENIDATE 10 MG TABLET PO SCH ×2 (08:18→11:28)
[2021-02-16] MEDS: BENZTROPINE 1 MG TABLET PO SCH (08:18)
[2021-02-16] MEDS: FLUOXETINE HCL 20 MG CAPSULE PO SCH (08:18)
[2021-02-16] MEDS: HALOPERIDOL 5 MG TABLET PO SCH (08:18)
[2021-02-16] MEDS: NICOTINE 21 MG/24 HR PATCH.TD24 TD SCH (08:19)
[2021-03-15] MEDS ORDERED: QUET200T2 PO (11:30)
== END 2021-02-16 13:00 | disposition home or self-care (01) | DRG 885 ==
LOC: 3E 18:43
PROVIDERS: ADMIT Psychiatry & Neurology Psychosomatic Medicine; ATTEND Psychiatry & Neurology Psychosomatic Medicine
DX: F25.0 Schizoaffective disorder, bipolar type (principal); F11.20 Opioid dependence, uncomplicated; R45.851 Suicidal ideations; Q61.3 Polycystic kidney, unspecified; F43.10 Post-traumatic stress disorder, unspecified; F90.9 Attention-deficit hyperactivity disorder, unspecified type; F10.11 Alcohol abuse, in remission; K59.00 Constipation, unspecified; G47.00 Insomnia, unspecified; E78.5 Hyperlipidemia, unspecified; G89.29 Other chronic pain; I25.10 Atherosclerotic heart disease of native coronary artery without angina pectoris; F15.21 Other stimulant dependence, in remission; F17.210 Nicotine dependence, cigarettes, uncomplicated; Z86.73 Personal history of transient ischemic attack (TIA), and cerebral infarction without residual deficits; Z79.899 Other long term (current) drug therapy; Z79.82 Long term (current) use of aspirin; Z83.3 Family history of diabetes mellitus; Z81.8 Family history of other mental and behavioral disorders; Z82.49 Family history of ischemic heart disease and other diseases of the circulatory system; Z90.89 Acquired absence of other organs; Z71.6 Tobacco abuse counseling; Z88.6 Allergy status to analgesic agent; Z88.8 Allergy status to other drugs, medicaments and biological substances; Z88.1 Allergy status to other antibiotic agents
CPT/HCPCS: 36415; 71045; 80061; 82607; 84439; 93005; Q0162

== ENCOUNTER 2021-02-23 12:59 | Emergency (ER) | payer MEDICAID ==
[~2021-02-23] VITALS: Ht 188 cm; Wt 94.7 kg
[~2021-02-23 12:59] MED LIST changes: +QUET100T PO; +QUET300T PO; -QUET300T2 PO
--- NOTE | 2021-02-23 13:17 | NUR ---
APPLICATIONS INTERN: KHANG STONE SPEAKING WITH PT
--- NOTE | 2021-02-23 13:52 | NUR ---
WEATHER ALGORITHM SCIENTIST: PT TO ROOM FROM CHARGE DESK. PT PROVIDED WITH WATER.
--- NOTE | 2021-02-23 14:13 | NUR ---
ROOM SECURED, PT UNDRESSED AND PLACED IN GOWN. EMT COLLECTED URINE/WALKED TO LAB. BELONGINGS TO BAG AND PLACED IN SECURE LOCKER BY EMT. SITTER AT DOORWAY.
[2021-02-23 14:25] LABS: MICROSCOPIC NOT IND
[2021-02-23] MEDS ORDERED: LORazepam 0.5MG TABLET ONE (14:29)
[2021-02-23] MEDS ORDERED: LORazepam 1MG TABLET PO PRN (14:30)
[2021-02-23] MEDS ORDERED: LORazepam 0.5MG TABLET PO ONE (14:30)
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
[2021-02-23 14:35] LABS: AMPHETAMINE SCREEN, URINE Negative (Negative); BARBITURATE SCREEN, URINE Negative (Negative); BENZODIAZEPINE SCREEN, URINE Positive (Negative); CANNABINOID SCREEN, URINE Negative (Negative); COCAINE SCREEN, URINE Negative (Negative); METHADONE SCREEN, URINE Negative (Negative); OPIATE SCREEN, URINE Negative (Negative)
[2021-02-23] MEDS ORDERED: QUET400T4 PO (14:46)
[2021-02-23] MEDS ORDERED: AMPH20TA2 PO (14:46)
[2021-02-23 14:47] LABS: BASOPHILS % (AUTO) 1 % (0-1); EOSINOPHILS % (AUTO) 1 % (1-7); LYMPHOCYTES % (AUTO) 21 % (22-44); MEAN CORPUSCULAR HEMOGLOBIN 30.5 pg (27.5-34.5); MEAN CORPUSCULAR HGB CONC 33.9 g/dL (33.2-36.2); MONOCYTES % (AUTO) 10 % (2-9); NEUTROPHILS % (AUTO) 67 % (42-75); PLATELET COUNT 185 x10^3/uL (130-400); RED BLOOD COUNT 5.21 x10^6/uL (4.38-5.82); RED CELL DISTRIBUTION WIDTH 13.8 % (9.4-14.8)
[2021-02-23 14:57] LABS: ANION GAP 3 mmol/L (5-15); CALCIUM 9.4 mg/dL (8.5-10.1); CHLORIDE 105 mmol/L (98-107)
[2021-02-23] MEDS ORDERED: HALOPERIDOL 5 MG/ML IM ONE (15:00)
[2021-02-23 15:01] LABS: CREATININE 1.09 mg/dL (0.7-1.3)
[2021-02-23 15:04] LABS: SALICYLATE LEVEL < 1.7 mg/dL (2.8-20.0)
[2021-02-23] MEDS ORDERED: HALOPERIDOL 5 MG/ML ONE (15:20)
--- NOTE | 2021-02-23 16:39 | NUR ---
REPORT TO REYNALDO NURSE AT [facility]. [facility] ACCEPTING PT, ACCEPTING DR MIRELES. PT CAN BE TRANSPORTED ON OR AFTER 1899. THROUGHPUT RN, JOEL INFORMED OF ACCEPTANCE/TRANSFER.
--- NOTE | 2021-02-23 17:30 | NUR ---
MEAL TRAY PROVIDED TO PT.
[2021-02-23 19:19] VITALS: BP 124/86
[2021-02-23] MEDS ORDERED: QUETIAPINE 100MG TABLET PO SCH (21:00)
[2021-02-23] MEDS ORDERED: DIVALPROEX 500 MG TAB.ER.24H PO SCH (21:00)
[2021-02-24] MEDS ORDERED: FLUOXETINE HCL 20 MG CAPSULE PO SCH (09:00)
[2021-02-24] MEDS ORDERED: OLANZAPINE 10 MG TABLET PO SCH (09:00)
== END 2021-02-23 19:52 ==
LOC: ED 13:58
DX: F20.9 Schizophrenia, unspecified (principal); R45.851 Suicidal ideations; F17.200 Nicotine dependence, unspecified, uncomplicated
CPT/HCPCS: 36415; 80048; 80164; 80299; 80307; 80320; 81003; 82040; 85025; 96372; 99285; J1630; 80329; G0480

== ENCOUNTER 2021-02-24 15:03 | Emergency (ER) | payer MEDICAID ==
[~2021-02-24] VITALS: Ht 188 cm; Wt 96.0 kg
[~2021-02-24 15:03] MED LIST changes: +QUET400T4 PO
--- NOTE | 2021-02-24 15:25 | NUR ---
[facility] FROM [facility] WHERE PT IS ON A LEGAL HOLD FOR SI. PT REPORTS R. TESTICLE PAIN THAT RAIDATES TO HIS R. FLANK. +BLOODY URINE AND BURNING. HX OF TORSION. PT ALSO REPORTS NAUSEA. PT DENIES SI AT THIS TIME. SITTER FROM [facility] AT BEDSIDE. PT ATTACHED TO MONITORS. MARTHAS. NADBob. SAFETY PRECAUTIONS IN PLACE.
[2021-02-24] MEDS ORDERED: KETOROLAC 30 MG/1 ML ONE (15:30)
[2021-02-24] MEDS ORDERED: KETOROLAC 30 MG/1 ML IM ONE (15:30)
[2021-02-24] MEDS ORDERED: ACETAMINOPHEN 325 MG TABLET PO ONE (15:30)
[2021-02-24 15:46] LABS: MICROSCOPIC INDICATED
--- NOTE | 2021-02-24 16:18 | NUR ---
PT TO US
[2021-02-24 18:06] VITALS: BP 125/76
--- NOTE | 2021-02-24 18:55 | NUR ---
BEDSIDE REPORT FROM JOSUE POWELLMAINTENANCE AND CUSTODIAN SUPERVISOR OF CARE AT THIS TIME
--- NOTE | 2021-02-24 19:45 | NUR ---
PT AWAITING TRANSPORT BACK TO [facility] AT THIS TIME SITTER REMAINS PRESENT
--- NOTE | 2021-02-24 20:40 | NUR ---
PT AWAITING TRANSPORT BACK TO [facility] AT THIS TIME SITTER REMAINS PRESENT
--- NOTE | 2021-02-24 21:55 | NUR ---
PT AWAITING TRANSPORT BACK TO [facility] AT THIS TIME SITTER REMAINS PRESENT
--- NOTE | 2021-02-24 22:34 | NUR ---
PT DC BACK TO [facility] WITH STAFF AND EMS
== END 2021-02-24 22:36 ==
LOC: ED 18:10
DX: R31.0 Gross hematuria (principal); N50.811 Right testicular pain; G43.909 Migraine, unspecified, not intractable, without status migrainosus; I10 Essential (primary) hypertension; Z87.11 Personal history of peptic ulcer disease
CPT/HCPCS: 74176; 76870; 81001; 87086; 96372; 99285; J1885

== ENCOUNTER 2021-03-09 12:12 | Emergency (ER) | payer MEDICAID ==
[~2021-03-09] VITALS: Ht 188 cm; Wt 95.7 kg
[2021-03-09 12:26] VITALS: BP 125/79
--- NOTE | 2021-03-09 12:46 | NUR ---
pt w +ah/vh voices telling him to kill himself. plan: overdose on his meds. has hx of this. here voluntarily, sts will not leave. 1 beer this am. no drugs today. no hi. as
[2021-03-09 13:10] LABS: BASOPHILS % (AUTO) 1 % (0-1); EOSINOPHILS % (AUTO) 2 % (1-7); LYMPHOCYTES % (AUTO) 25 % (22-44); MEAN CORPUSCULAR HEMOGLOBIN 31.3 pg (27.5-34.5); MEAN CORPUSCULAR HGB CONC 34.5 g/dL (33.2-36.2); MEAN PLATELET VOLUME 7.7 fL (7.4-10.4); MONOCYTES % (AUTO) 10 % (2-9); NEUTROPHILS % (AUTO) 62 % (42-75); PLATELET COUNT 286 x10^3/uL (130-400); RED BLOOD COUNT 4.68 x10^6/uL (4.38-5.82); RED CELL DISTRIBUTION WIDTH 13.7 % (9.4-14.8)
[2021-03-09 13:33] LABS: ALBUMIN 3.5 g/dL (3.4-5.0); CALCIUM 9.1 mg/dL (8.5-10.1); CREATININE 0.89 mg/dL (0.7-1.3)
[2021-03-09 13:47] LABS: SALICYLATE LEVEL < 1.7 mg/dL (2.8-20.0)
[2021-03-09 13:48] LABS: ANION GAP 3 mmol/L (5-15); CHLORIDE 108 mmol/L (98-107)
[2021-03-09] MEDS ORDERED: LORazepam 1MG TABLET PO PRN (14:00)
--- NOTE | 2021-03-09 15:03 | NUR ---
PT AMBULATED TO RESTROOM. PROVIDED UA
[2021-03-09 15:11] LABS: AMPHETAMINE SCREEN, URINE Negative (Negative); BARBITURATE SCREEN, URINE Negative (Negative); BENZODIAZEPINE SCREEN, URINE Positive (Negative); CANNABINOID SCREEN, URINE Negative (Negative); COCAINE SCREEN, URINE Negative (Negative); METHADONE SCREEN, URINE Negative (Negative); OPIATE SCREEN, URINE Negative (Negative)
[2021-03-09] MEDS ORDERED: DIVALPROEX 500 MG TAB.ER.24H PO SCH (21:00)
[2021-03-09] MEDS ORDERED: QUETIAPINE 100MG TABLET PO SCH (21:00)
[2021-03-10] MEDS ORDERED: OLANZAPINE 10 MG TABLET PO SCH (09:00)
[2021-03-10] MEDS ORDERED: FLUOXETINE HCL 20 MG CAPSULE PO SCH (09:00)
== END 2021-03-09 14:00 | disposition home or self-care (01) ==
LOC: ED 12:33
DX: R45.851 Suicidal ideations (principal); F25.8 Other schizoaffective disorders; I10 Essential (primary) hypertension; Z20.822 Contact with and (suspected) exposure to COVID-19
CPT/HCPCS: 36415; 80048; 80164; 80299; 80307; 80320; 80329; 82040; 85025; 87426; 99285; G0480

== ENCOUNTER 2021-03-09 16:30 | Inpatient (IN) | payer MEDICAID ==
[~2021-03-09] VITALS: Ht 188 cm; Wt 94.0 kg
[2021-03-09] MEDS ORDERED: POLYETHYLENE GLYCOL 17 GM PACKET PO PRN (17:00)
[2021-03-09] MEDS ORDERED: DOCUSATE 100 MG CAPSULE PO PRN (17:00)
[2021-03-09 17:26] VITALS: BP 118/83
[2021-03-09] MEDS ORDERED: PLEASE ENTER HEIGHT AND WEIGHT MC SCH (17:30)
[2021-03-09] MEDS: NICOTINE 21 MG/24 HR PATCH.TD24 TD SCH (18:35)
[2021-03-09 19:44] VITALS: BP 132/86
[2021-03-09] MEDS: HALOPERIDOL 5 MG TABLET PO SCH (20:22)
[2021-03-09] MEDS: PROPRANOLOL 20 MG TABLET PO PRN (20:22)
[2021-03-09] MEDS: PRAZOSIN 2 MG CAPSULE PO SCH (20:22)
[2021-03-09] MEDS: QUETIAPINE 100MG TABLET PO SCH (20:23)
[2021-03-09] MEDS: GABAPENTIN 300 MG CAPSULE PO SCH (20:23)
[2021-03-09] MEDS: BENZTROPINE 1 MG TABLET PO SCH (20:23)
[2021-03-10] MEDS ORDERED: ASPIRIN 81 MG TABLET EC PO SCH (06:00)
[2021-03-10 07:21] VITALS: BP 104/70
[2021-03-10] MEDS: BENZTROPINE 1 MG TABLET PO SCH ×2 (08:31→19:53)
[2021-03-10] MEDS: ASPIRIN 81 MG TABLET EC PO SCH (08:31)
[2021-03-10] MEDS: HALOPERIDOL 5 MG TABLET PO SCH ×3 (08:32→19:53)
[2021-03-10] MEDS: FLUOXETINE HCL 20 MG CAPSULE PO SCH (08:32)
[2021-03-10] MEDS: GABAPENTIN 300 MG CAPSULE PO SCH ×3 (08:32→19:53)
[2021-03-10] MEDS: QUETIAPINE 100MG TABLET PO SCH ×2 (08:33→19:53)
[2021-03-10] MEDS: NALTREXONE HCL 50 MG TABLET PO SCH (08:34)
[2021-03-10] MEDS: METHYLPHENIDATE 10 MG TABLET PO SCH (12:11)
[2021-03-10 13:30] LABS: ALANINE AMINOTRANSFERASE 40 U/L (12-78); ALBUMIN 3.1 g/dL (3.4-5.0)
[2021-03-10 13:32] LABS: ALKALINE PHOSPHATASE 69 U/L (45-117); BILIRUBIN,TOTAL 0.3 mg/dL (0.2-1.0); TOTAL PROTEIN 6.2 g/dL (6.4-8.2)
[2021-03-10 13:37] LABS: BILIRUBIN, DIRECT < 0.1 mg/dL (0.1-0.2); BILIRUBIN,INDIRECT 0.2 mg/dL (0.0-2.0)
[2021-03-10 15:37] LABS: GLUCOSE, CSF 53 mg/dL (40-80); TOTAL PROTEIN,CSF 60 mg/dL (15-45)
[2021-03-10] MEDS: NICOTINE 21 MG/24 HR PATCH.TD24 TD SCH (16:47)
[2021-03-10] MEDS: PRAZOSIN 2 MG CAPSULE PO SCH (19:53)
[2021-03-10 19:59] VITALS: BP 115/73
[2021-03-10] MEDS: ACETAMINOPHEN 325 MG TABLET PO PRN (22:01)
[2021-03-11 07:26] VITALS: BP 113/74
[2021-03-11] MEDS: QUETIAPINE 100MG TABLET PO SCH (09:00)
[2021-03-11] MEDS: NALTREXONE HCL 50 MG TABLET PO SCH (09:00)
[2021-03-11] MEDS: METHYLPHENIDATE 10 MG TABLET PO SCH ×2 (09:18→12:16)
[2021-03-11] MEDS: BENZTROPINE 1 MG TABLET PO SCH ×2 (09:19→20:54)
[2021-03-11] MEDS: GABAPENTIN 300 MG CAPSULE PO SCH ×3 (09:20→20:53)
[2021-03-11] MEDS: ASPIRIN 81 MG TABLET EC PO SCH (09:20)
[2021-03-11] MEDS: HALOPERIDOL 5 MG TABLET PO SCH ×3 (09:20→20:54)
[2021-03-11] MEDS: FLUOXETINE HCL 20 MG CAPSULE PO SCH (09:21)
[2021-03-11] MEDS: NICOTINE 21 MG/24 HR PATCH.TD24 TD SCH (09:27)
[2021-03-11] MEDS: LORazepam 1MG TABLET PO PRN ×2 (13:33→20:53)
[2021-03-11 18:12] VITALS: BP 114/72
[2021-03-11] MEDS: PRAZOSIN 2 MG CAPSULE PO SCH (20:54)
[2021-03-11] MEDS: QUETIAPINE 200 MG TABLET PO SCH (20:56)
[2021-03-11 23:44] VITALS: BP_SYST 118; BP_SYST 63; BP_SYST 80; BP_DIAS 39; BP_DIAS 57; BP_DIAS 79
[2021-03-12] VITALS (9 sets, daily range): BP systolic 75–126; BP diastolic 51–85
--- NOTE | 2021-03-12 00:39 | NUR ---
YANELIS GUAJARDO - Fall Risk Medication(s) present and receiving anticoagulants.
[2021-03-12] MEDS: ASPIRIN 81 MG TABLET EC PO SCH (07:52)
[2021-03-12] MEDS: VENLAFAXINE 75 MG CAP ER PO SCH (07:52)
[2021-03-12] MEDS: BENZTROPINE 1 MG TABLET PO SCH ×2 (07:52→21:30)
[2021-03-12] MEDS: NALTREXONE HCL 50 MG TABLET PO SCH (07:53)
[2021-03-12] MEDS: METHYLPHENIDATE 10 MG TABLET PO SCH ×2 (07:53→12:45)
[2021-03-12] MEDS: GABAPENTIN 300 MG CAPSULE PO SCH ×3 (07:53→21:30)
[2021-03-12] MEDS: NICOTINE 21 MG/24 HR PATCH.TD24 TD SCH (08:01)
[2021-03-12] MEDS: PROPRANOLOL 20 MG TABLET PO PRN (18:38)
[2021-03-12] MEDS: QUETIAPINE 200 MG TABLET PO SCH (21:29)
[2021-03-12] MEDS: PRAZOSIN 2 MG CAPSULE PO SCH (21:30)
[2021-03-13 07:33] VITALS: BP 113/78
[2021-03-13] MEDS: METHYLPHENIDATE 10 MG TABLET PO SCH ×2 (08:22→11:57)
[2021-03-13] MEDS: VENLAFAXINE 75 MG CAP ER PO SCH (08:54)
[2021-03-13] MEDS: ASPIRIN 81 MG TABLET EC PO SCH (08:54)
[2021-03-13] MEDS: BENZTROPINE 1 MG TABLET PO SCH ×2 (08:55→20:44)
[2021-03-13] MEDS: NICOTINE 21 MG/24 HR PATCH.TD24 TD SCH (08:55)
[2021-03-13] MEDS: GABAPENTIN 300 MG CAPSULE PO SCH ×3 (08:55→20:44)
[2021-03-13] MEDS: NALTREXONE HCL 50 MG TABLET PO SCH (08:57)
[2021-03-13 18:40] VITALS: BP 113/73
[2021-03-13] MEDS: PRAZOSIN 2 MG CAPSULE PO SCH (20:44)
[2021-03-13] MEDS: QUETIAPINE 200 MG TABLET PO SCH (20:44)
[2021-03-14] VITALS (14 sets, daily range): BP systolic 75–122; BP diastolic 52–84
--- NOTE | 2021-03-14 01:10 | NUR ---
YANELIS GUAJARDO - Fall Risk Medication(s) present and receiving anticoagulants.
[2021-03-14] MEDS: NALTREXONE HCL 50 MG TABLET PO SCH (09:00)
[2021-03-14] MEDS: ASPIRIN 81 MG TABLET EC PO SCH (09:05)
[2021-03-14] MEDS: BENZTROPINE 1 MG TABLET PO SCH (09:05)
[2021-03-14] MEDS: METHYLPHENIDATE 10 MG TABLET PO SCH ×2 (09:05→12:23)
[2021-03-14] MEDS: VENLAFAXINE 75 MG CAP ER PO SCH (09:06)
[2021-03-14] MEDS: GABAPENTIN 300 MG CAPSULE PO SCH ×3 (09:07→20:22)
[2021-03-14] MEDS: NICOTINE 21 MG/24 HR PATCH.TD24 TD SCH (09:08)
[2021-03-14] MEDS ORDERED: PROPRANOLOL 20 MG TABLET PO PRN (10:00)
[2021-03-14] MEDS: ACETAMINOPHEN 325 MG TABLET PO PRN (20:23)
[2021-03-14] MEDS ORDERED: BENZTROPINE 1 MG TABLET PO SCH (21:00)
[2021-03-14] MEDS ORDERED: QUETIAPINE 200 MG TABLET PO SCH (21:00)
[2021-03-14] MEDS ORDERED: PRAZOSIN 1 MG CAPSULE PO SCH (21:00)
[2021-03-15 07:40] VITALS: BP 111/77
[2021-03-15] MEDS ORDERED: VENLAFAXINE 75 MG CAP ER PO SCH (09:00)
[2021-03-15] MEDS: NALTREXONE HCL 50 MG TABLET PO SCH (09:00)
[2021-03-15] MEDS: GABAPENTIN 300 MG CAPSULE PO SCH (09:02)
[2021-03-15] MEDS: METHYLPHENIDATE 10 MG TABLET PO SCH ×2 (09:02→12:44)
[2021-03-15] MEDS: ASPIRIN 81 MG TABLET EC PO SCH (09:02)
[2021-03-15] MEDS: NICOTINE 21 MG/24 HR PATCH.TD24 TD SCH (09:12)
[2021-03-15] MEDS ORDERED: ASPI81TA45 PO (11:30)
[2021-03-15] MEDS ORDERED: NICO-587 TD (11:30)
[2021-03-15] MEDS ORDERED: QUET200T PO (11:30)
[2021-03-15] MEDS ORDERED: NALT50TA PO (11:30)
[2021-03-15] MEDS ORDERED: VENL75CA6 PO (11:30)
[2021-03-15] MEDS ORDERED: BENZ1TAB61 PO (11:30)
[2021-03-15] MEDS ORDERED: PRAZ1CAP2 PO (11:30)
== END 2021-03-15 13:10 | disposition home or self-care (01) | DRG 885 ==
LOC: 3E 17:05
PROVIDERS: ADMIT Psychiatry & Neurology Psychosomatic Medicine; ATTEND Psychiatry & Neurology Psychosomatic Medicine
DX: F25.0 Schizoaffective disorder, bipolar type (principal); Q61.2 Polycystic kidney, adult type; R45.851 Suicidal ideations; E78.5 Hyperlipidemia, unspecified; F15.21 Other stimulant dependence, in remission; F17.210 Nicotine dependence, cigarettes, uncomplicated; F43.10 Post-traumatic stress disorder, unspecified; F90.9 Attention-deficit hyperactivity disorder, unspecified type; G89.29 Other chronic pain; I25.10 Atherosclerotic heart disease of native coronary artery without angina pectoris; I95.1 Orthostatic hypotension; Z79.82 Long term (current) use of aspirin; Z79.899 Other long term (current) drug therapy; Z82.49 Family history of ischemic heart disease and other diseases of the circulatory system; Z83.3 Family history of diabetes mellitus; Z86.73 Personal history of transient ischemic attack (TIA), and cerebral infarction without residual deficits; Z88.8 Allergy status to other drugs, medicaments and biological substances; Z88.5 Allergy status to narcotic agent
CPT/HCPCS: 36415; 62328; 70450; 71045; 76705; 80076; 82040; 82042; 82784; 82945; 83690; 83873; 84157; 86645; 86695; 86696; 86762; 86777; 86778; 89051; 93005

== ENCOUNTER 2021-03-19 18:36 | Observation (INO) | payer MEDICAID ==
[~2021-03-19] VITALS: Ht 188 cm; Wt 100.0 kg
[~2021-03-19 18:36] MED LIST changes: +ASPI81TA45 PO; +PRAZ1CAP2 PO; +QUET200T PO; +VENL75CA6 PO
[2021-03-19] MEDS ORDERED: ONDANSETRON ODT 4 MG PO ONE (19:30)
[2021-03-19] MEDS ORDERED: ONDANSETRON ODT 4 MG ONE (19:32)
--- NOTE | 2021-03-19 20:46 | NUR ---
NO CHANGES, PT REMAINS IN GURNEY. HAS MULTIPLE SCLEROSIS SO IS SHAKING AND MOVING IN BED. APPEARS TO BE EXHIBITING TARDIVE DISKENISIA, BUT UNCERTAIN. PT UNABLE TO HOLD STILL, AND DOING A LOT OF LIP SMACKING. PTS SIDERAILS UP X2 AND NO ACUTE DISTRESS.
[2021-03-19] MEDS ORDERED: OLANZAPINE 10 MG INJ IM ONE ×3 (22:00→22:18)
--- NOTE | 2021-03-19 22:25 | NUR ---
PT CONTINUES TO TURN IN ROOM, WITH BODY TWITCHING AND MOVEMENT. PT A&OX4, AND ANSWERS QUESTIONS APPROPRIATELY. EVALED PT, AND NEW ORDERS RECEIVED, SEE EMAR. PT MEDICATED WITH IM INJECTION TO RIGHT GLUTEUS ANN-MARIE AND TOLERATED WELL.
--- NOTE | 2021-03-19 22:51 | NUR ---
PT CALM BUT REMAINS WITH SPASTIC MOVEMENT. PT A&OX4, AND ANSWERS QUESTIONS. STATES HE FEELS BETTER. NO FURTHER CHANGES AT THIS TIME.
--- NOTE | 2021-03-19 23:55 | NUR ---
PT SLEEPING AT THIS TIME, CALM AND NO SPASTIC MOTION NOTED. PT IN NO ACUTE DISTRESS. AIRWAY INTACT, AND GOOD AERATION AND OXYGENATION
--- NOTE | 2021-03-20 02:48 | NUR ---
PT SLEEPING AT THIS TIME, CALM. PT IN NO ACUTE DISTRESS. AIRWAY INTACT, AND GOOD AERATION AND OXYGENATION
--- NOTE | 2021-03-20 04:44 | NUR ---
PT SLEEPING AT THIS TIME, CALM. PT IN NO ACUTE DISTRESS. AIRWAY INTACT, AND GOOD AERATION AND OXYGENATION
--- NOTE | 2021-03-20 05:11 | NUR ---
REPORT AND CARE TO ANISHA POWELL.
--- NOTE | 2021-03-20 06:29 | NUR ---
[place]
--- NOTE | 2021-03-20 06:50 | NUR ---
RECEIVED REPORT FROM ANISHA POWELL, PLAN OF CARE DISCUSSED.
--- NOTE | 2021-03-20 07:19 | NUR ---
PT DENIES, SI/SA AT THIS TIME, CALM, ORDERED BREAKFAST. PT VERBALIZED NO OTHER NEEDS AT THIS TIME
[2021-03-20 08:42] VITALS: BP 112/79
--- NOTE | 2021-03-20 08:42 | NUR ---
PT ON AND OFF SLEEPING, PT STATES NO HUNGRY AT THIS TIME. PT VERBALZIED NO NEEDS AT THIS TIME
--- NOTE | 2021-03-20 09:43 | NUR ---
TASK RN NOTE: PT SLEEPING ON GURNEY, RESPS EVEN AND UNLABORED. NO DISTRESS NOTED.
--- NOTE | 2021-03-20 11:15 | NUR ---
Patient/Caregiver given discharge instructions and they have confirmed that they understand the instructions. Patient ambulatory with steady gait. NAD, all questions answered appropriately, denies additional needs at this time. No personal belongings left in room after discharge.
== END 2021-03-20 11:17 | disposition home or self-care (01) ==
LOC: ED 21:20 → EDIP 03-20 00:36
PROVIDERS: ADMIT Emergency Medicine; ATTEND Emergency Medicine
DX: F15.10 Other stimulant abuse, uncomplicated (principal); F25.9 Schizoaffective disorder, unspecified; G43.909 Migraine, unspecified, not intractable, without status migrainosus; Q61.3 Polycystic kidney, unspecified; F41.1 Generalized anxiety disorder; Z63.8 Other specified problems related to primary support group; Z79.899 Other long term (current) drug therapy
CPT/HCPCS: 96372; 99285; G0378; Q0162

== ENCOUNTER 2021-04-18 13:20 | Inpatient (IN) | payer MEDICAID ==
[~2021-04-18] VITALS: Ht 182.9 cm; Wt 96.7 kg
[~2021-04-18 13:20] MED LIST changes: +ETOMIDATE 20 MG/10 ML ONE; +PROPOFOL 10 MG/ML, 100ML IV ONE; -QUET100T PO; +QUET100T2 PO; -QUET200T PO; +QUET200T2 PO; -QUET300T PO; +QUET300T2 PO; +SUCCINYLCHOLINE 20 MG/ML, 10ML ONE
[2021-04-18] MEDS ORDERED: NALOXONE 1 MG/ML, 2ML ONE (13:24)
[2021-04-18] MEDS ORDERED: NALOXONE 1 MG/ML, 2ML IVPush ONE (13:30)
[2021-04-18 13:48] LABS: BASOPHILS % (AUTO) 1 % (0-1); EOSINOPHILS % (AUTO) 3 % (1-7); LYMPHOCYTES % (AUTO) 31 % (22-44); MEAN CORPUSCULAR HEMOGLOBIN 29.8 pg (27.5-34.5); MEAN CORPUSCULAR HGB CONC 32.8 g/dL (33.2-36.2); MEAN PLATELET VOLUME 7.8 fL (7.4-10.4); MONOCYTES % (AUTO) 12 % (2-9); NEUTROPHILS % (AUTO) 53 % (42-75); PLATELET COUNT 293 x10^3/uL (130-400); RED BLOOD COUNT 4.66 x10^6/uL (4.38-5.82); RED CELL DISTRIBUTION WIDTH 14.4 % (9.4-14.8)
--- NOTE | 2021-04-18 13:53 | NUR ---
BREAK RN: PT RESTING IN ROOM WITH EYES CLOSED. REGUAR RESP. PULSE OX ON, ALLERGY PHYSICIAN ON. NSR NOTED. CALL LIGHT IN PLACE. WILL CONTINUE TO MONITOR WHILE PRIMARY RN IS ON BREAK.
[2021-04-18 14:11] LABS: ALANINE AMINOTRANSFERASE 76 U/L (12-78); ALBUMIN 3.4 g/dL (3.4-5.0); ANION GAP 4 mmol/L (5-15); CALCIUM 8.7 mg/dL (8.5-10.1); CHLORIDE 108 mmol/L (98-107); SALICYLATE LEVEL < 1.7 mg/dL (2.8-20.0)
[2021-04-18 14:13] LABS: ALKALINE PHOSPHATASE 85 U/L (45-117); BILIRUBIN,TOTAL 0.3 mg/dL (0.2-1.0); CREATININE 0.96 mg/dL (0.7-1.3); TOTAL PROTEIN 7.1 g/dL (6.4-8.2)
--- NOTE | 2021-04-18 14:18 | NUR ---
BREAK RN: REPORT GIVEN TO ANDRE SMYTH
[2021-04-18 15:07] LABS: MICROSCOPIC NOT IND
[2021-04-18 15:19] LABS: AMPHETAMINE SCREEN, URINE Positive (Negative); BARBITURATE SCREEN, URINE Negative (Negative); BENZODIAZEPINE SCREEN, URINE Positive (Negative); CANNABINOID SCREEN, URINE Negative (Negative); COCAINE SCREEN, URINE Negative (Negative); METHADONE SCREEN, URINE Negative (Negative); OPIATE SCREEN, URINE Negative (Negative)
[2021-04-18] MEDS ORDERED: ETOMIDATE 20 MG/10 ML IVPush ONE ×2 (15:30→16:30)
[2021-04-18] MEDS ORDERED: SUCCINYLCHOLINE 20 MG/ML, 10ML IVPush ONE ×2 (15:30→16:30)
--- NOTE | 2021-04-18 15:31 | NUR ---
START OPTIFLOW AT THIS TIME. RT AT BEDSIDE
[2021-04-18] MEDS ORDERED: ENALAPRILAT 1.25 MG/ML, 2ML IVPush PRN (16:00)
[2021-04-18] MEDS ORDERED: ONDANSETRON 2MG/ML, 2ML IVPush PRN (16:00)
[2021-04-18] MEDS ORDERED: MIDAZOLAM HCL 50 MG in SODIUM CHLORIDE 0.9% 40 ML IV PRN (16:00)
[2021-04-18] MEDS ORDERED: POLYETHYLENE GLYCOL 17 GM PACKET PO PRN (16:00)
[2021-04-18] MEDS ORDERED: ACETAMINOPHEN 325 MG TABLET PO PRN (16:00)
[2021-04-18] MEDS ORDERED: BISACODYL 10 MG SUPP PR PRN (16:00)
[2021-04-18] MEDS ORDERED: LORazepam 2 MG/ML, 1ML IVPush PRN (16:00)
[2021-04-18] MEDS ORDERED: OXYcodone IR 5MG TABLET PO PRN (16:00)
[2021-04-18] MEDS: PROPOFOL 100 ML IV PRN ×2 (16:13→20:24)
--- NOTE | 2021-04-18 16:18 | NUR ---
PT INTUBATED 1600. DR KENNY. RT AND THIS RN AT BEDSIDE. 8.0 AT 24 TOOTH. EQUAL CHEST RISE AND BREATH SOUNDS BILATERAL. AWAITING RAD. CONFIRMATION. VSS. SEDATION STARTED.
[2021-04-18] MEDS ORDERED: FENTANYL PF 100 MCG/2ML IVPush PRN (17:00)
[2021-04-18] MEDS ORDERED: LIDOCAINE-MPF 1%, 2ML ENDO PRN (17:00)
[2021-04-18] MEDS ORDERED: PHARMACY MAY ADJ FOR RENAL FX MC SCH (17:00)
[2021-04-18 17:52] LABS: MICROSCOPIC AUTO
[2021-04-18] MEDS: FAMOTIDINE 20 MG/2 ML IVPush SCH (19:56)
[2021-04-18] MEDS: ENOXAPARIN 40 MG/0.4 ML SQ SCH (19:56)
[2021-04-18] MEDS: LACTATED RINGERS 1,000 ML IV SCH (19:57)
[2021-04-19] MEDS: LACTATED RINGERS 1,000 ML IV SCH ×2 (03:42→11:54)
[2021-04-19] MEDS: PROPOFOL 100 ML IV PRN (03:42)
[2021-04-19 04:33] LABS: BASOPHILS % (AUTO) 1 % (0-1); EOSINOPHILS % (AUTO) 2 % (1-7); LYMPHOCYTES % (AUTO) 18 % (22-44); MEAN CORPUSCULAR HEMOGLOBIN 29.7 pg (27.5-34.5); MEAN CORPUSCULAR HGB CONC 33.1 g/dL (33.2-36.2); MONOCYTES % (AUTO) 12 % (2-9); NEUTROPHILS % (AUTO) 68 % (42-75); PLATELET COUNT 259 x10^3/uL (130-400); RED BLOOD COUNT 4.48 x10^6/uL (4.38-5.82); RED CELL DISTRIBUTION WIDTH 14.6 % (9.4-14.8)
[2021-04-19 04:43] LABS: ALANINE AMINOTRANSFERASE 61 U/L (12-78); ALBUMIN 2.9 g/dL (3.4-5.0); ANION GAP 4 mmol/L (5-15); CALCIUM 8.6 mg/dL (8.5-10.1); CHLORIDE 110 mmol/L (98-107); CREATININE 0.87 mg/dL (0.7-1.3)
[2021-04-19 04:45] LABS: ALKALINE PHOSPHATASE 81 U/L (45-117); BILIRUBIN,TOTAL 0.6 mg/dL (0.2-1.0); TOTAL PROTEIN 6.2 g/dL (6.4-8.2)
[2021-04-19] MEDS: SENNA/DOCUSATE TABLET PO SCH (08:12)
[2021-04-19] MEDS: FAMOTIDINE 20 MG/2 ML IVPush SCH (08:12)
[2021-04-19] MEDS: POTASSIUM CHLORIDE 20 MEQ PACKET PO SCH ×2 (08:12→17:50)
[2021-04-19 18:20] VITALS: BP 155/89
[2021-04-19] MEDS: ENOXAPARIN 40 MG/0.4 ML SQ SCH (20:08)
[2021-04-19] MEDS: FAMOTIDINE 20 MG TABLET PO SCH (20:08)
[2021-04-20 01:10] VITALS: BP 123/89
[2021-04-20 07:41] LABS: ANION GAP 4 mmol/L (5-15); CALCIUM 8.6 mg/dL (8.5-10.1); CHLORIDE 110 mmol/L (98-107)
[2021-04-20 08:25] VITALS: BP 135/87
[2021-04-20] MEDS: SENNA/DOCUSATE TABLET PO SCH (08:34)
[2021-04-20] MEDS: FAMOTIDINE 20 MG TABLET PO SCH (08:34)
[2021-04-20] MEDS: LACTATED RINGERS 1,000 ML IV SCH ×3 (08:35→18:00)
[2021-04-20] MEDS ORDERED: POTASSIUM CHLORIDE 20 MEQ TAB.ER.PRT PO ONE (12:00)
[2021-04-20] MEDS ORDERED: NICOTINE 21 MG/24 HR PATCH.TD24 TD SCH (12:00)
[2021-04-20] MEDS ORDERED: NICO-587 TD (12:06)
[2021-04-20 13:33] VITALS: BP 127/85
== END 2021-04-20 18:43 | DRG 917 ==
LOC: ED 16:27 → EDIP 16:40 → CSU 18:13 → 4WST 04-19 17:35
PROVIDERS: ADMIT Internal Medicine; ATTEND Internal Medicine
PROC: 5A1935Z Respiratory Ventilation, Less than 24 Consecutive Hours (ICD-10-PCS; principal; 2021-04-18)
PROC: 0BH17EZ Insertion of Endotracheal Airway into Trachea, Via Natural or Artificial Opening (ICD-10-PCS; 2021-04-18)
DX: T43.592A Poisoning by other antipsychotics and neuroleptics, intentional self-harm, initial encounter (principal); J96.01 Acute respiratory failure with hypoxia; G92 Toxic encephalopathy; N13.30 Unspecified hydronephrosis; Z99.11 Dependence on respirator [ventilator] status; R45.851 Suicidal ideations; Q61.3 Polycystic kidney, unspecified; T42.4X2A Poisoning by benzodiazepines, intentional self-harm, initial encounter; I10 Essential (primary) hypertension; F32.9 Major depressive disorder, single episode, unspecified; F90.9 Attention-deficit hyperactivity disorder, unspecified type; F43.10 Post-traumatic stress disorder, unspecified; J32.0 Chronic maxillary sinusitis; F25.9 Schizoaffective disorder, unspecified; G35 Multiple sclerosis; I86.1 Scrotal varices; Z20.822 Contact with and (suspected) exposure to COVID-19; F17.210 Nicotine dependence, cigarettes, uncomplicated; F15.21 Other stimulant dependence, in remission; Z87.11 Personal history of peptic ulcer disease; Z87.442 Personal history of urinary calculi; Z86.73 Personal history of transient ischemic attack (TIA), and cerebral infarction without residual deficits; Z82.49 Family history of ischemic heart disease and other diseases of the circulatory system; Z83.3 Family history of diabetes mellitus; Y92.89 Other specified places as the place of occurrence of the external cause; Z79.4 Long term (current) use of insulin; Z59.0 Homelessness; Z81.8 Family history of other mental and behavioral disorders; Z88.8 Allergy status to other drugs, medicaments and biological substances
CPT/HCPCS: 31500; 36415; 36600; 70450; 71045; 80048; 80053; 80299; 80307; 80320; 80329; 81001; 81003; 82140; 82803; 83735; 84100; 84478; 85025; 87070; 87081; 87086; 87147; 87205; 93005; 94002; 94003; 94150; 96374; 96375; G0378; J1650; J2704; G0480; J0330; J2310; J7120